=== PATIENT | male | born 1940 | race Caucasian/White ===

== ENCOUNTER 2017-08-04 16:24 | Observation (INO) | payer MEDICARE, BC ==
[2017-08-04] MEDS ORDERED: Sodium Chloride 0.9% 10 ML Syringe FLUSH PRN (16:34)
[2017-08-04] MEDS ORDERED: methylPREDNISolone Sodium Succinate 125 MG/2 ML SDV IV ONE (16:37)
[2017-08-04] MEDS ORDERED: Sodium Chloride 0.9% 1,000 ML IV ONE (16:37)
[2017-08-04] MEDS ORDERED: Albuterol/Ipratropium 3.0-0.5 MG/3 ML Neb Soln NEB ONE (16:37)
[2017-08-04] MEDS ORDERED: Amitriptyline 10 MG Tab PO SCH (20:00)
[2017-08-04] MEDS ORDERED: LORazepam 1 MG Tab PO SCH (20:00)
[2017-08-04] MEDS ORDERED: Oseltamivir 75 MG Cap PO SCH (20:00)
[2017-08-04] MEDS: Oseltamivir 30 MG Cap PO SCH (20:49)
--- NOTE | 2017-08-04 21:36 | EDM.PDOC ---
ED HPI GENERAL MEDICAL PROBLEM - General Chief Complaint: Respiratory Problem Stated Complaint: fever Time Seen by Provider: 08/04/17 16:35 Source of Information: Reports: Patient History Limitations: Reports: No Limitations - History of Present Illness INITIAL COMMENTS - FREE TEXT/NARRATIVE: Pt. complains of cough, chest congestion, and body aches for approx. 5 days. He has not been experiencing any rashes. No diarrhea. He has been nauseated. states that he has not been experiencing any confusion. No decreased LOC. He states that he is not experiencing any substernal chest pain or shortness of breath. 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 - Related Data Allergies Allergy/AdvReac Type Severity Reaction Status Date / Time niacin Allergy Body Aches Verified 08/04/17 18:44 simvastatin [From Zocor] Allergy Muscle Verified 08/04/17 18:44 Aches hmg-coa-r inhibitors Allergy Cannot Uncoded 08/04/17 18:44 Remember Home Meds: Home Meds Albuterol Sulfate [Albuterol Sulfate HFA] 1 - 2 puff IH ASDIRECTED PRN 10/11/14 [History] Aspirin [Pat Chewable Aspirin] 81 mg PO DAILY 10/11/14 [History] Budesonide/Formoterol [Symbicort 160-4.5 MCG] 2 puff INH BID 10/11/14 [History] Calcium Carbonate/Vitamin D3 [Caltrate 600 Plus D3 Tablet] 2 each PO DAILY 10/11 [History] Clopidogrel [Plavix] 75 mg PO DAILY 10/11/14 [History] Fish Oil/[place]-3 Fatty Acids [Fish Oil 1,000 MG] 1 each PO DAILY 10/11/14 [ History] LORazepam [Ativan] 1 mg PO BEDTIME 10/11/14 [History] Mesalamine [Lialda] 2 tab PO DAILY 10/11/14 [History] Metoprolol Tartrate [Lopressor] 25 mg PO BID 10/11/14 [History] Montelukast Sodium [Singulair] 10 mg PO DAILY 10/11/14 [History] Nitroglycerin [Nitro-Dur] 1 each TD DAILY 10/11/14 [History] Nitroglycerin [Nitrostat] 0.4 mg SL ASDIRECTED PRN 10/11/14 [History] Pramipexole Di-HCl [Mirapex] 0.5 mg PO DAILY 10/11/14 [History] Rosuvastatin [Crestor] 20 mg PO DAILY 10/11/14 [History] Albuterol [Proventil Neb Soln] 2.5 mg INH QID PRN 08/04/17 [History] Amitriptyline [Elavil] 10 mg PO BEDTIME 08/04/17 [History] Ascorbic Acid [Vitamin C] 1,000 mg PO DAILY 08/04/17 [History] Cholecalciferol (Vitamin D3) [Vitamin D3] 1,000 units PO DAILY 08/04/17 [History ] Clobetasol [Temovate 0.05% Oint] 1 applic TOP ASDIRECTED 08/04/17 [History] Cyanocobalamin (Vitamin B12) [Vitamin B12] 500 mcg PO ASDIRECTED 08/04/17 [ History] Cyanocobalamin/FA/Pyridoxine [B Complex-Folic Acid] 1 tab PO DAILY 08/04/17 [ History] Gabapentin [Neurontin] 300 mg PO TID 08/04/17 [History] Triamcinolone Acetonide [Triamcinolone Acetonide 0.1% Crm] 1 applic TOP BID PRN 08/04/17 [History] Ubidecarenone [Co Q-10] 75 mg PO DAILY 08/04/17 [History] Past Medical History HEENT History: Reports: Otitis Media, Sinusitis, Other (See Below) Other HEENT History: awaiting ear doctor appt.--tube came out and is effecting hearing, pt. has to keep an ear plug in or he hears his heartbeat while trying to sleep and it keeps him from sleeping. Cardiovascular History: Reports: Bypass, CAD, High Cholesterol, Pacemaker, Other (See Below) Other Cardiovascular History: cerebralvascular small vessel disease. AV block. carotid artery stenosis Respiratory History: Reports: Asthma, Sleep Apnea Gastrointestinal History: Reports: GERD, Other (See Below) Other Gastrointestinal History: benign neoplasm of colon. ulcerative colitis Genitourinary History: Reports: Renal Calculus Musculoskeletal History: Reports: Other (See Below) Other Musculoskeletal History: bilateral sacroiliac joints. closed pelvic fracture. R. 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 Psychiatric History: Reports: Anxiety, Other (See Below) Other Psychiatric History: restless legs Endocrine/Metabolic History: Reports: Obesity/BMI 30+ Social & Family History - Tobacco Use Smoking Status *Q: Former Smoker Years of Tobacco use: 40 Used Tobacco, but Quit: Yes Month Tobacco Last Used: Quit 35 years ago - Alcohol Use Days Per Week of Alcohol Use: 2 Number of Drinks Per Day: 2 Total Drinks Per Week: 4 - Recreational Drug Use Recreational Drug Use: No ED ROS GENERAL - Review of Systems Review Of Systems: See Below Constitutional: Reports: No Symptoms HEENT: Reports: No Symptoms Respiratory: Reports: Wheezing, Cough Cardiovascular: Reports: No Symptoms Endocrine: Reports: No Symptoms GI/Abdominal: Reports: No Symptoms : Reports: No Symptoms Musculoskeletal: Reports: No Symptoms Skin: Reports: No Symptoms Neurological: Reports: No Symptoms Psychiatric: Reports: No Symptoms Hematologic/Lymphatic: Reports: No Symptoms Immunologic: Reports: No Symptoms ED EXAM, GENERAL - Physical Exam Exam: See Below Exam Limited By: No Limitations General Appearance: Alert, WD/WN, No Apparent Distress Eye Exam: Bilateral Eye: EOMI, Foreign Body, PERRL Ears: Normal External Exam, Normal Canal, Hearing Grossly Normal, Normal TMs Ear Exam: Bilateral Ear: Auricle Normal, Canal Normal, TM normal Nose: Normal Inspection, Normal Mucosa, No Blood Throat/Mouth: Normal Inspection, Normal Lips, Normal Teeth, Normal Gums, Normal Oropharynx, Normal Voice, No Airway Compromise Head: Atraumatic, Normocephalic Neck: Normal Inspection, Supple, Non-Tender, Full Range of Motion Respiratory/Chest: No Respiratory Distress, Crackles, Wheezing Cardiovascular: Normal Peripheral Pulses, Regular Rate, Rhythm, No Edema, No Gallop, No JVD, No Murmur, No Rub Peripheral Pulses: 4+: Radial (L), Radial (R) GI/Abdominal: Normal Bowel Sounds, Soft, Non-Tender, No Organomegaly, No Distention, No Abnormal Bruit, No Mass Back Exam: Normal Inspection, Full Range of Motion, NT Extremities: Normal Inspection, Normal Range of Motion, Non-Tender, Normal Capillary Refill, No Pedal Edema Neurological: Alert, Oriented, CN II-XII Intact, Normal Cognition, Normal Gait, Normal Reflexes, No Motor/Sensory Deficits Psychiatric: Normal Affect, Normal Mood Skin Exam: Warm, Dry, Intact, Normal Color, No Rash Course - Vital Signs Last Recorded V/S: Last Vital Signs Temp 37.3 C 08/04/17 18:29 Pulse 70 08/04/17 18:29 Resp 22 H 08/04/17 18:29 BP 110/55 L 08/04/17 18:29 Pulse Ox 94 L 08/04/17 18:29 - Orders/Labs/Meds Orders: Active Orders 24 hr Category Date Time Status EKG Documentation Completion [RC] STAT Care 08/04/17 16:35 Ordered RT Aerosol Therapy [RC] ASDIRECTED Care 08/04/17 16:37 Active Chest 2V [CR] Stat Exams 08/04/17 16:34 Taken CULTURE BLOOD [BC] Stat Lab 08/04/17 16:50 Received CULTURE BLOOD [BC] Stat Lab 08/04/17 16:56 Received Sodium Chloride 0.9% [Saline Flush] Med 08/04/17 16:34 Active 10 ml FLUSH ASDIRECTED PRN Blood Culture x2 Reflex Set [OM.PC] Stat Oth 08/04/17 16:36 Ordered Peripheral IV Insertion Adult [OM.PC] Routine Oth 08/04/17 16:35 Ordered Medication Orders Albuterol/Ipratropium (Duoneb 3.0-0.5 Mg/3 Ml) 3 ml NEB Q6HRRT [facility] Amitriptyline HCl (Elavil) 10 mg PO BEDTIME [facility] Aspirin (Aspirin) 81 mg PO DAILY [facility] Cholecalciferol (Vitamin D3) 1,000 units PO DAILY [facility] Clopidogrel Bisulfate (Plavix) 75 mg PO DAILY [facility] Fish Oil (Fish Oil) gm PO DAILY [facility] Gabapentin (Neurontin) 300 mg PO TID [facility] Lorazepam (Ativan) 1 mg PO BEDTIME [facility] Metoprolol Tartrate (Lopressor) 25 mg PO BID [facility] Montelukast Sodium (Singulair) 10 mg PO DAILY [facility] Non-Formulary Medication (Budesonide/Formoterol) 2 puff INH BID [facility] Non-Formulary Medication (Calcium Carbonate/Vitamin D3 [Caltrate 600 Plus D3 Tablet]) 2 each PO DAILY [facility] Cyanocobalamin [ (Vitamin B12] 500mcg) 500 mcg PO Q48H [facility] Non-Formulary Medication (Cyanocobalamin/Fa/Pyridoxine [B Complex-Folic Acid]) 1 tab PO DAILY [facility] Non-Formulary Medication (Rosuvastatin [Crestor]) 20 mg PO DAILY [facility] Oseltamivir Phosphate (Tamiflu) 30 mg PO BID [facility] Last Admin: 08/04/17 20:49 Dose: 30 mg Pramipexole Dihydrochloride (Mirapex) 0.5 mg PO DAILY [facility] Sodium Chloride (Saline Flush) 10 ml FLUSH ASDIRECTED PRN PRN Reason: Keep Vein Open Last Admin: 08/04/17 16:58 Dose: 10 ml Labs: Laboratory Tests 08/04/17 08/04/17 08/04/17 Range/Units 16:50 16:50 16:50 WBC 7.6 (4.0-10.0) x10^3/uL RBC 3.75 L (4.5-6.0) x10^6/uL Hgb 12.1 L D (14.0-18.0) g/dL Hct 35.5 L (40.0-52.0) % MCV 94.7 H (78.0-93.0) fL MCH 32.3 H (26.0-32.0) pg MCHC 34.1 (32.0-36.0) g/dL RDW Coeff of Xochilt 13.2 (10.0-15.0) % Plt Count 151 (130-400) x10^3/uL Neut % (Auto) 61.1 (50.0-80.0) % Lymph % (Auto) 21.4 L (25.0-50.0) % [place] % (Auto) 15.1 H (2.0-11.0) % Eos % (Auto) 2.0 (0.0-4.0) % Baso % (Auto) 0.4 (0.2-1.2) % PT 10.3 (9.8-11.8) SEC INR 1.0 L (2.0-3.5) Sodium 141 (136-145) mmol/L Potassium 3.8 (3.5-5.1) mmol/L Chloride 105 (98-107) mmol/L Carbon Dioxide 23 (21-32) mmol/L BUN 17 (7-18) mg/dL Creatinine 1.5 H (0.70-1.30) mg/dL Est Cr Clr Drug Dosing 37.33 mL/min Estimated GFR (MDRD) 45 Glucose 119 H (74-106) mg/dL Lactic Acid (0.4-2.0) mmol/L Calcium 8.2 L (8.5-10.1) mg/dL Corrected Calcium 8.68 (8.5-10.1) mg/dL Total Bilirubin 0.5 (0.2-1.0) mg/dL AST 19 (15-37) U/L ALT 22 (16-63) U/L Alkaline Phosphatase 68 (46-116) U/L Troponin I 0.029 (<=0.056) ng/mL C-Reactive Protein 3.7 H (<=0.9) mg/dL NT-Pro-B Natriuret Pep 1533 H (<=450) pg/mL Total Protein 7.1 (6.4-8.2) g/dL Albumin 3.4 (3.4-5.0) g/dL Globulin 3.7 Albumin/Globulin Ratio 0.92 //18 Range/Units 16:50 WBC (4.0-10.0) x10^3/uL RBC (4.5-6.0) x10^6/uL Hgb (14.0-18.0) g/dL Hct (40.0-52.0) % MCV (78.0-93.0) fL MCH (26.0-32.0) pg MCHC (32.0-36.0) g/dL RDW Coeff of Xochilt (10.0-15.0) % Plt Count (130-400) x10^3/uL Neut % (Auto) (50.0-80.0) % Lymph % (Auto) (25.0-50.0) % [place] % (Auto) (2.0-11.0) % Eos % (Auto) (0.0-4.0) % Baso % (Auto) (0.2-1.2) % PT (9.8-11.8) SEC INR (2.0-3.5) Sodium (136-145) mmol/L Potassium (3.5-5.1) mmol/L Chloride (98-107) mmol/L Carbon Dioxide (21-32) mmol/L BUN (7-18) mg/dL Creatinine (0.70-1.30) mg/dL Est Cr Clr Drug Dosing mL/min Estimated GFR (MDRD) Glucose (74-106) mg/dL Lactic Acid 1.0 (0.4-2.0) mmol/L Calcium (8.5-10.1) mg/dL Corrected Calcium (8.5-10.1) mg/dL Total Bilirubin (0.2-1.0) mg/dL AST (15-37) U/L ALT (16-63) U/L Alkaline Phosphatase (46-116) U/L Troponin I (<=0.056) ng/mL C-Reactive Protein (<=0.9) mg/dL NT-Pro-B Natriuret Pep (<=450) pg/mL Total Protein (6.4-8.2) g/dL Albumin (3.4-5.0) g/dL Globulin Albumin/Globulin Ratio Meds: Medications Generic Name Dose Route Start Last Admin Trade Name Freq PRN Reason Stop Dose Admin Albuterol/Ipratropium 3 ml 08/05/17 01:00 Duoneb 3.0-0.5 Mg/3 Ml NEB Q6HRRT [facility] Amitriptyline HCl 10 mg 08/05/17 20:00 Elavil PO BEDTIME [facility] Aspirin 81 mg 08/05/17 08:00 Aspirin PO DAILY [facility] Cholecalciferol 1,000 units 08/05/17 08:00 Vitamin D3 PO DAILY [facility] Clopidogrel Bisulfate 75 mg 08/05/17 08:00 Plavix PO DAILY [facility] Fish Oil gm 08/05/17 08:00 Fish Oil PO DAILY [facility] Gabapentin 300 mg 08/05/17 08:00 Neurontin PO TID [facility] Lorazepam 1 mg 08/05/17 20:00 Ativan PO BEDTIME [facility] Metoprolol Tartrate 25 mg 08/05/17 08:00 Lopressor PO BID [facility] Montelukast Sodium 10 mg 08/05/17 08:00 Singulair PO DAILY [facility] Non-Formulary Medication 2 puff 08/05/17 08:00 Budesonide/Formoterol INH BID [facility] Non-Formulary Medication 2 each 08/05/17 08:00 Calcium Carbonate/Vitamin D3 [Caltrate 600 Plus D3 Tablet] PO DAILY [facility] Cyanocobalamin [ 500 mcg 08/05/17 09:00 Vitamin B12] 500mcg PO Q48H [facility] Non-Formulary Medication 1 tab 08/05/17 08:00 Cyanocobalamin/Fa/Pyridoxine [B Complex-Folic Acid] PO DAILY [facility] Non-Formulary Medication 20 mg 08/05/17 08:00 Rosuvastatin [Crestor] PO DAILY [facility] Oseltamivir Phosphate 30 mg 08/04/17 20:00 08/04/17 20:49 Tamiflu PO 30 mg BID [facility] Administration Pramipexole Dihydrochloride 0.5 mg 08/05/17 08:00 Mirapex PO DAILY [facility] Sodium Chloride 10 ml 08/04/17 16:34 08/04/17 16:58 Saline Flush FLUSH 10 ml ASDIRECTED PRN Administration Keep Vein Open Discontinued Medications Generic Name Dose Route Start Last Admin Trade Name Freq PRN Reason Stop Dose Admin Albuterol/Ipratropium 3 ml 08/04/17 16:37 08/04/17 16:42 Duoneb 3.0-0.5 Mg/3 Ml NEB 08/04/17 16:38 3 ml ONETIME ONE Administration Sodium Chloride 1,000 mls @ 1,000 mls/hr 08/04/17 16:37 08/04/17 17:13 Normal Saline IV 08/04/17 17:36 1,000 mls/hr .BOLUS ONE Administration Methylprednisolone Sodium Succinate 125 mg 08/04/17 16:37 08/04/17 16:57 Solu-Medrol IV 08/04/17 16:38 125 mg ONETIME ONE Administration Oseltamivir Phosphate 75 mg 08/04/17 20:00 Tamiflu PO BID [facility] Departure - Departure Time of Disposition: 18:32 Disposition: Admitted As Inpatient 64 Clinical Impression: Influenza A - Discharge Information - My Orders Last 24 Hours: My Active Orders 08/04/17 16:34 Chest 2V [CR] Stat Sodium Chloride 0.9% [Saline Flush] 10 ml FLUSH ASDIRECTED PRN 08/04/17 16:35 EKG Documentation Completion [RC] STAT Peripheral IV Insertion Adult [OM.PC] Routine 08/04/17 16:36 Blood Culture x2 Reflex Set [OM.PC] Stat 08/04/17 16:37 RT Aerosol Therapy [RC] ASDIRECTED 08/04/17 16:50 CULTURE BLOOD [BC] Stat 08/04/17 16:56 CULTURE BLOOD [BC] Stat - Assessment/Plan Last 24 Hours: My Active Orders 08/04/17 16:34 Chest 2V [CR] Stat Sodium Chloride 0.9% [Saline Flush] 10 ml FLUSH ASDIRECTED PRN 08/04/17 16:35 EKG Documentation Completion [RC] STAT Peripheral IV Insertion Adult [OM.PC] Routine 08/04/17 16:36 Blood Culture x2 Reflex Set [OM.PC] Stat 08/04/17 16:37 RT Aerosol Therapy [RC] ASDIRECTED 08/04/17 16:50 CULTURE BLOOD [BC] Stat 08/04/17 16:56 CULTURE BLOOD [BC] Stat
[2017-08-04] MEDS ORDERED: LORAZEPAM 2 MG PO SCH (21:57)
[2017-08-04] MEDS: METOPROLOL TARTRATE 100 MG PO SCH (22:32)
[2017-08-04] MEDS: GABAPENTIN 600 MG PO SCH (22:35)
[2017-08-04] MEDS: Formoterol/Mometasone 200-5 MCG 8.8 GM Inhaler IH SCH (22:43)
[2017-08-05] MEDS: Albuterol/Ipratropium 3.0-0.5 MG/3 ML Neb Soln NEB SCH ×2 (00:40→07:12)
[2017-08-05] MEDS ORDERED: Acetaminophen 325 MG Tab PO ONE (05:34)
[2017-08-05] MEDS ORDERED: [UNRECOGNIZED DRUG - OTHER] PO SCH (08:00)
[2017-08-05] MEDS ORDERED: Metoprolol Tartrate 50 MG Tab PO SCH (08:00)
[2017-08-05] MEDS ORDERED: Calcium Carbonate/Vitamin D3 1250 MG-200 Unit Tab PO SCH (08:00)
[2017-08-05] MEDS ORDERED: PYRIDOXINE PO SCH (08:00)
[2017-08-05] MEDS ORDERED: CYANOCOBALAMIN PO SCH (08:00)
[2017-08-05] MEDS ORDERED: PRAMIPEXOLE 1 MG PO SCH (08:00)
[2017-08-05] MEDS ORDERED: CLOPIDOGREL 75 MG PO SCH (08:00)
[2017-08-05] MEDS ORDERED: Aspirin 81 MG Tab.Chew PO SCH (08:00)
[2017-08-05] MEDS ORDERED: Fish Oil/Omega-3 Fatty Acids 1 Gm Cap PO SCH (08:00)
[2017-08-05] MEDS ORDERED: Cholecalciferol (Vitamin D3) 1,000 Unit Tab PO SCH (08:00)
[2017-08-05] MEDS ORDERED: ROSUVASTATIN 40 MG PO SCH (08:00)
[2017-08-05] MEDS ORDERED: Montelukast 10 MG Tab PO SCH (08:00)
[2017-08-05] MEDS ORDERED: Cyanocobalamin (Vitamin B12) 250 MCG Tab PO SCH (09:00)
[2017-08-05 09:23] VITALS: BP 152/70
[2017-08-05] MEDS: Formoterol/Mometasone 200-5 MCG 8.8 GM Inhaler IH SCH (09:33)
[2017-08-05] MEDS: GABAPENTIN 600 MG PO SCH ×2 (09:34→12:37)
[2017-08-05] MEDS: METOPROLOL TARTRATE 100 MG PO SCH (09:36)
[2017-08-05] MEDS: Oseltamivir 30 MG Cap PO SCH (09:49)
[2017-08-05] MEDS ORDERED: Oseltamivir 30 MG Cap ONE (12:00)
--- NOTE | 2017-08-14 09:37 | PCM.DCSUM1 ---
Discharge Summary - Discharge Data Discharge Date: 08/05/17 Discharge Disposition: Home, Self-Care 01 Condition: Good - Discharge Diagnosis/Problem(s) (1) Influenza A SNOMED Code(s): 037103595 ICD Code: J10.1 - FLU DUE TO OTH IDENT INFLUENZA VIRUS W OTH RESP MANIFEST Status: Acute Priority: Medium Onset Date: ~08/03/17 - Patient Summary/Data Hospital Course: Seen in ER and then sent to observation. Received breathing treatments and IV fluids. Appetite improved. Breathing better. He will follow-up with his primary. No fluttering of the chest. - Patient Instructions Diet: Usual Diet as Tolerated Activity: As Tolerated Driving: May Drive Today - Discharge Plan Prescriptions/Med Rec: Oseltamivir [Tamiflu] 30 mg PO BID #9 cap Home Medications: Home Meds Albuterol Sulfate [Albuterol Sulfate HFA] 1 - 2 puff IH ASDIRECTED PRN 10/11/14 [History] Aspirin [Pat Chewable Aspirin] 81 mg PO DAILY 10/11/14 [History] Budesonide/Formoterol [Symbicort 160-4.5 MCG] 2 puff INH BID 10/11/14 [History] Calcium Carbonate/Vitamin D3 [Caltrate 600 Plus D3 Tablet] 2 each PO DAILY 10/11 [History] Clopidogrel [Plavix] 75 mg PO DAILY 10/11/14 [History] Fish Oil/[place]-3 Fatty Acids [Fish Oil 1,000 MG] 1 each PO DAILY 10/11/14 [ History] LORazepam [Ativan] 1 mg PO BEDTIME 10/11/14 [History] Mesalamine [Lialda] 2 tab PO DAILY 10/11/14 [History] Metoprolol Tartrate [Lopressor] 50 mg PO BID 10/11/14 [History] Montelukast Sodium [Singulair] 10 mg PO DAILY 10/11/14 [History] Nitroglycerin [Nitro-Dur] 1 each TD DAILY 10/11/14 [History] Nitroglycerin [Nitrostat] 0.4 mg SL ASDIRECTED PRN 10/11/14 [History] Pramipexole Di-HCl [Mirapex] 0.5 mg PO DAILY 10/11/14 [History] Rosuvastatin [Crestor] 20 mg PO DAILY 10/11/14 [History] Albuterol [Proventil Neb Soln] 2.5 mg INH QID PRN 08/04/17 [History] Amitriptyline [Elavil] 10 mg PO BEDTIME 08/04/17 [History] Ascorbic Acid [Vitamin C] 1,000 mg PO DAILY 08/04/17 [History] Cholecalciferol (Vitamin D3) [Vitamin D3] 1,000 units PO DAILY 08/04/17 [History ] Clobetasol [Temovate 0.05% Oint] 1 applic TOP ASDIRECTED 08/04/17 [History] Cyanocobalamin (Vitamin B12) [Vitamin B12] 500 mcg PO ASDIRECTED 08/04/17 [ History] Cyanocobalamin/FA/Pyridoxine [B Complex-Folic Acid] 1 tab PO DAILY 08/04/17 [ History] Gabapentin [Neurontin] 300 mg PO TID 08/04/17 [History] Triamcinolone Acetonide [Triamcinolone Acetonide 0.1% Crm] 1 applic TOP BID PRN 08/04/17 [History] Ubidecarenone [Co Q-10] 75 mg PO DAILY 08/04/17 [History] Calcium Carbonate/Vitamin D3 [Calcium Carbonate/Vitamin D 1250 MG-200 Unit] 2 tab PO DAILY tablet 08/05/17 [Rx] Oseltamivir [Tamiflu] 30 mg PO BID #9 cap 08/05/17 [Rx] Patient Handouts: Influenza, Adult, [id number] Forms: ED Department Discharge Referrals: Keyana Bradford DO [Primary Care Provider] - - General Info Date of Service: 08/05/17 Functional Status: Reports: Ambulating - Review of Systems General: Reports: No Symptoms HEENT: Reports: No Symptoms Pulmonary: Denies: Shortness of Breath (Much improved. ), Pleuritic Chest Pain, Cough Cardiovascular: Reports: No Symptoms. Denies: Palpitations Gastrointestinal: Reports: No Symptoms Psychiatric: Reports: No Symptoms - Patient Data Vitals - Most Recent: Last Vital Signs Temp 36.8 C 08/05/17 09:19 Pulse 78 08/05/17 09:19 Resp 18 08/05/17 09:19 BP 152/70 H 08/05/17 09:19 Pulse Ox 98 08/05/17 09:19 Weight - Most Recent: 92.533 kg Med Orders - Current: Current Medications Discontinued Medications Acetaminophen (Tylenol) 650 mg PO NOW ONE Stop: 08/05/17 05:35 Last Admin: 08/05/17 05:40 Dose: 650 mg Albuterol/Ipratropium (Duoneb 3.0-0.5 Mg/3 Ml) 3 ml NEB ONETIME ONE Stop: 08/04/17 16:38 Last Admin: 08/04/17 16:42 Dose: 3 ml Albuterol/Ipratropium (Duoneb 3.0-0.5 Mg/3 Ml) 3 ml NEB Q6HRRT [facility] Last Admin: 08/05/17 07:12 Dose: 3 ml Amitriptyline HCl (Elavil) 10 mg PO BEDTIME [facility] Last Admin: 08/04/17 22:42 Dose: 10 mg Aspirin (Aspirin) 81 mg PO DAILY [facility] Last Admin: 08/05/17 09:48 Dose: 81 mg Calcium Carbonate (Calcium Carbonate/Vitamin D 1250 Mg-200 Unit) 2 tab PO DAILY [facility] Last Admin: 08/05/17 09:48 Dose: 2 tab Cholecalciferol (Vitamin D3) 1,000 units PO DAILY [facility] Last Admin: 08/05/17 09:48 Dose: 1,000 units Clopidogrel Bisulfate (Plavix) 75 mg PO DAILY [facility] Last Admin: 08/05/17 09:39 Dose: 75 mg Cyanocobalamin (Vitamin B12) 500 mcg PO Q48H [facility] Last Admin: 08/05/17 09:50 Dose: Not Given Fish Oil (Fish Oil) 1 gm PO DAILY [facility] Last Admin: 08/05/17 09:49 Dose: 1 gm Sodium Chloride (Normal Saline) 1,000 mls @ 1,000 mls/hr IV .BOLUS ONE Stop: 08/04/17 17:36 Last Admin: 08/04/17 17:13 Dose: 1,000 mls/hr Lorazepam (Ativan) 1 mg PO BEDTIME [facility] Last Admin: 08/04/17 22:44 Dose: Not Given Methylprednisolone Sodium Succinate (Solu-Medrol) 125 mg IV ONETIME ONE Stop: 08/04/17 16:38 Last Admin: 08/04/17 16:57 Dose: 125 mg Metoprolol Tartrate (Lopressor) 25 mg PO BID [facility] Mometasone Furoate/Formoterol Fumar (Dulera 200-5 Mcg) 2 puff IH BID [facility] Last Admin: 08/05/17 09:33 Dose: 2 puff Montelukast Sodium (Singulair) 10 mg PO DAILY [facility] Last Admin: 08/05/17 09:49 Dose: 10 mg Cyanocobalamin/Fa/Pyridoxine [B Complex-Folic Acid] 1 Tab 1 tab PO DAILY [facility] Gabapentin 600mg (Tablet Own Med ) 0 each PO TID [facility] Last Admin: 08/05/17 12:37 Dose: Not Given Pramipexole 1mg (Tablet Own Med ) 0 each PO DAILY [facility] Last Admin: 08/05/17 09:39 Dose: 1 each Rosuvastatin [ Crestor] 40mg Tablet Own Med 20 mg PO DAILY [facility] Last Admin: 08/05/17 09:40 Dose: 20 mg Lorazepam 2mg Tablet ( Own Med ) 0 each PO BEDTIME [facility] Last Admin: 08/04/17 22:34 Dose: 1 each Metoprolol Tartrate 100mg Tablet Own Med 0 each PO BID [facility] Last Admin: 08/05/17 09:36 Dose: 1 each Oseltamivir Phosphate (Tamiflu) 75 mg PO BID [facility] Oseltamivir Phosphate (Tamiflu) 30 mg PO BID [facility] Last Admin: 08/05/17 09:49 Dose: 30 mg Oseltamivir Phosphate (Tamiflu) 90 mg .ROUTE .STK-MED ONE Stop: 08/05/17 12:01 Sodium Chloride (Saline Flush) 10 ml FLUSH ASDIRECTED PRN PRN Reason: Keep Vein Open Last Admin: 08/04/17 16:58 Dose: 10 ml - Exam Quality Assessment: Denies: Supplemental Oxygen General: Reports: Alert, Oriented HEENT: Reports: Pupils Equal Neck: Denies: Lymphadenopathy Cardiovascular: Reports: Regular Rate, Regular Rhythm GI/Abdominal Exam: Normal Bowel Sounds Psy/Mental Status: Reports: Alert, Normal Affect *Q Meaningful Use (DIS) - VTE *Q VTE Criteria *Q: - Stroke *Q Stroke Criteria *Q: - AMI *Q AMI Criteria *Q:
== END 2017-08-05 12:20 | disposition home or self-care (01) ==
LOC: VM.ED 16:24 → VM.MS 18:17
PROVIDERS: ADMIT Physician Assistant; ATTEND Physician Assistant
DX: J10.1 Influenza due to other identified influenza virus with other respiratory manifestations (principal); Z79.82 Long term (current) use of aspirin; Z79.899 Other long term (current) drug therapy; Z88.8 Allergy status to other drugs, medicaments and biological substances; J45.909 Unspecified asthma, uncomplicated; G47.30 Sleep apnea, unspecified; K21.9 Gastro-esophageal reflux disease without esophagitis; I25.10 Atherosclerotic heart disease of native coronary artery without angina pectoris; E78.00 Pure hypercholesterolemia, unspecified; F41.9 Anxiety disorder, unspecified; E66.9 Obesity, unspecified; Z68.30 Body mass index [BMI] 30.0-30.9, adult; Z87.891 Personal history of nicotine dependence
CPT/HCPCS: 36415; 71046; 80053; 83605; 83880; 84484; 85025; 85610; 86140; 87040; 87804; 93005; 94640; 94760; 96361; 96374; 99285; A9270; G0378; J2930; J7030; J7050; 99217; 99220

== ENCOUNTER 2019-05-08 19:48 | Emergency (ER) | payer MEDICARE, BC ==
[2019-05-08 20:05] VITALS: BP 122/44; PULSE 83
--- NOTE | 2019-05-08 20:39 | EDM.PDOC ---
ED HPI GENERAL MEDICAL PROBLEM - General Chief Complaint: General Stated Complaint: FEVER,WEAK Time Seen by Provider: 05/08/19 20:26 - History of Present Illness INITIAL COMMENTS - FREE TEXT/NARRATIVE: Govind is an 79 y/o male who presents to the ER with his for complaints of possible constipation. He had a Urology procedure on Sunday in [place] and was sent home that day. He had done a fleets enema on Sunday night and he has not really had a BM since and he is very concerned about this. He has taken a couple Hydrocodone/APAP but relaly just taken Motrin for pain. He also had a fever of 100.7 at home tonight about 6pm and his gave him Motrin prior to coming to the ER. He was started on Cipro after the procedure and has been taking it. He is concerned about the fever since he was post op. He admits that he is mostly worried about "how hard I can push to have a BM." He did not make contact with his Urologist today in the office and does not have any follow up appt scheduled. - Related Data Allergies Allergy/AdvReac Type Severity Reaction Status Date / Time niacin AdvReac Body Aches Verified 08/06/17 08:40 simvastatin [From Zocor] AdvReac Muscle Verified 08/06/17 08:40 Aches Home Meds: Home Meds Albuterol Sulfate [Albuterol Sulfate HFA] 1 - 2 puff IH ASDIRECTED PRN 10/11/14 [History] Aspirin [Pat Chewable Aspirin] 81 mg PO DAILY 10/11/14 [History] Budesonide/Formoterol [Symbicort 160-4.5 MCG] 2 puff INH BID 10/11/14 [History] Calcium Carbonate/Vitamin D3 [Caltrate 600 Plus D3 Tablet] 2 each PO DAILY 10/11 [History] Clopidogrel [Plavix] 75 mg PO DAILY 10/11/14 [History] Fish Oil/[place]-3 Fatty Acids [Fish Oil 1,000 MG] 1 each PO DAILY 10/11/14 [ History] LORazepam [Ativan] 1 mg PO BEDTIME 10/11/14 [History] Mesalamine [Lialda] 2 tab PO DAILY 10/11/14 [History] Metoprolol Tartrate [Lopressor] 50 mg PO BID 10/11/14 [History] Montelukast Sodium [Singulair] 10 mg PO DAILY 10/11/14 [History] Nitroglycerin [Nitro-Dur] 1 each TD DAILY 10/11/14 [History] Nitroglycerin [Nitrostat] 0.4 mg SL ASDIRECTED PRN 10/11/14 [History] Pramipexole Di-HCl [Mirapex] 0.5 mg PO DAILY 10/11/14 [History] Rosuvastatin [Crestor] 20 mg PO DAILY 10/11/14 [History] Albuterol [Proventil Neb Soln] 2.5 mg INH QID PRN 08/04/17 [History] Amitriptyline [Elavil] 10 mg PO BEDTIME 08/04/17 [History] Ascorbic Acid [Vitamin C] 1,000 mg PO DAILY 08/04/17 [History] Cholecalciferol (Vitamin D3) [Vitamin D3] 1,000 units PO DAILY 08/04/17 [History ] Clobetasol [Temovate 0.05% Oint] 1 applic TOP ASDIRECTED 08/04/17 [History] Cyanocobalamin (Vitamin B12) [Vitamin B12] 500 mcg PO ASDIRECTED 08/04/17 [ History] Cyanocobalamin/FA/Pyridoxine [B Complex-Folic Acid] 1 tab PO DAILY 08/04/17 [ History] Gabapentin [Neurontin] 300 mg PO TID 08/04/17 [History] Triamcinolone Acetonide [Triamcinolone Acetonide 0.1% Crm] 1 applic TOP BID PRN 08/04/17 [History] Ubidecarenone [Co Q-10] 75 mg PO DAILY 08/04/17 [History] Calcium Carbonate/Vitamin D3 [Calcium Carbonate/Vitamin D 1250 MG-200 Unit] 2 tab PO DAILY tablet 08/05/17 [Rx] Past Medical History HEENT History: Reports: Otitis Media, Sinusitis, Other (See Below) Other HEENT History: awaiting ear doctor appt.--tube came out and is effecting hearing, pt. has to keep an ear plug in or he hears his heartbeat while trying to sleep and it keeps him from sleeping. Cardiovascular History: Reports: Bypass, CAD, High Cholesterol, Pacemaker, Other (See Below) Other Cardiovascular History: cerebralvascular small vessel disease. AV block. carotid artery stenosis Respiratory History: Reports: Asthma, Sleep Apnea Gastrointestinal History: Reports: GERD, Other (See Below) Other Gastrointestinal History: benign neoplasm of colon. ulcerative colitis Genitourinary History: Reports: Prostate Disorder, Renal Calculus Musculoskeletal History: Reports: Other (See Below) Other Musculoskeletal History: bilateral sacroiliac joints. closed pelvic fracture. R. 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 Psychiatric History: Reports: Anxiety, Other (See Below) Other Psychiatric History: restless legs Endocrine/Metabolic History: Reports: Obesity/BMI 30+ ED ROS GENERAL - Review of Systems Review Of Systems: See Below Constitutional: Reports: Fever HEENT: Reports: No Symptoms Respiratory: Reports: No Symptoms Cardiovascular: Reports: No Symptoms Endocrine: Reports: No Symptoms GI/Abdominal: Reports: Constipation : Reports: Urgency Musculoskeletal: Reports: No Symptoms Skin: Reports: No Symptoms Neurological: Reports: No Symptoms Psychiatric: Reports: No Symptoms Hematologic/Lymphatic: Reports: No Symptoms Immunologic: Reports: No Symptoms ED EXAM, GENERAL - Physical Exam Exam: See Below Exam Limited By: No Limitations General Appearance: Alert, WD/WN, No Apparent Distress (Elderly male, NAD) Ears: Normal External Exam, Normal Canal, Hearing Grossly Normal Nose: Normal Inspection, Normal Mucosa Throat/Mouth: Normal Inspection, Normal Lips, Normal Teeth, Normal Voice Head: Atraumatic, Normocephalic Neck: Supple Respiratory/Chest: No Respiratory Distress, Lungs Clear, Normal Breath Sounds, No Accessory Muscle Use, Chest Non-Tender Cardiovascular: Normal Peripheral Pulses, Regular Rate, Rhythm, No Edema, No Gallop, Diastolic Murmur GI/Abdominal: Normal Bowel Sounds, Soft, No Organomegaly, No Distention, No Mass , Tender (slightly in the LUQ) (Male) Exam: Deferred Rectal (Males) Exam: Deferred Back Exam: Normal Inspection Extremities: Normal Inspection, Normal Range of Motion, No Pedal Edema, Normal Capillary Refill Neurological: Alert, Oriented, CN II-XII Intact, Normal Cognition, Normal Gait Psychiatric: Normal Affect, Normal Mood Skin Exam: Warm, Dry, Intact, Normal Color, No Rash Lymphatic: No Adenopathy Course - Vital Signs Text/Narrative:: The patient was seen by the CREW CALLER. Labs and Xray were ordered. 2114 Xray reviewed. No intervention needed for constipation. Will reinforce use of Senna as per post op instructions. 2144 Reviewed xray report and labs with patient and his . No intervention done here in [facility] ER. Reinforced using stool softners/Miralax. Continue Cipro and monitor fever. Reassurance given and questions answered. Discharge instructions were given and the patient was sent home in stable condition. Last Recorded V/S: Last Vital Signs Temp 37.1 C 05/08/19 20:00 Pulse 83 05/08/19 20:00 Resp 20 05/08/19 20:00 BP 122/44 L 05/08/19 20:00 Pulse Ox 97 05/08/19 20:00 - Orders/Labs/Meds Orders: Active Orders 24 hr Category Date Time Status Abdomen 2V AP Flat Upright [CR] Stat Exams 05/08/19 20:39 Taken Labs: Laboratory Tests 05/08/19 05/08/19 Range/Units 21:04 21:04 WBC 2.8 L (4.0-10.0) x10^3/uL RBC 2.33 L (4.5-6.0) x10^6/uL Hgb 8.1 L D (14.0-18.0) g/dL Hct 23.5 L (40.0-52.0) % MCV 100.9 H D (78.0-93.0) fL MCH 34.8 H (26.0-32.0) pg MCHC 34.5 (32.0-36.0) g/dL RDW Coeff of Xochilt 15.4 H (10.0-15.0) % Plt Count 59 L D (130-400) x10^3/uL Neut % (Auto) 16.6 L (50.0-80.0) % Lymph % (Auto) 50.7 H (25.0-50.0) % [place] % (Auto) 27.7 H (2.0-11.0) % Eos % (Auto) 4.6 H (0.0-4.0) % Baso % (Auto) 0.4 (0.2-1.2) % Sodium 139 (69-191) mmol/L Potassium 3.7 (1.5-9.9) mmol/L Chloride 103 (54-184) mmol/L Carbon Dioxide 23 (21-32) mmol/L Anion Gap 16.7 (10-20) mmol/L BUN 19 H (7-18) mg/dL Creatinine 1.3 (0.70-1.30) mg/dL Est Cr Clr Drug Dosing TNP Estimated GFR (MDRD) 53 Glucose 94 (74-106) mg/dL Calcium 8.1 L (8.5-10.1) mg/dL Corrected Calcium 8.66 (8.5-10.1) mg/dL Total Bilirubin 0.5 (0.2-1.0) mg/dL AST 12 L (15-37) U/L ALT 17 (16-63) U/L Alkaline Phosphatase 72 (46-116) U/L Total Protein 6.7 (6.4-8.2) g/dL Albumin 3.3 L (3.4-5.0) g/dL Globulin 3.4 Albumin/Globulin Ratio 0.97 - Radiology Interpretation Free Text/Narrative:: XR Abdomen 2V=minimal gas and stool noted in ascending colon (final report pending) Departure - Departure Time of Disposition: 21:50 Disposition: Home, Self-Care 01 Preliminary Cause of *Q: Cardiac Arrest Condition: Good Clinical Impression: Prostate cancer, Fever, History of recent chemotherapy - Discharge Information *PRESCRIPTION DRUG MONITORING PROGRAM REVIEWED*: Not Applicable *COPY OF PRESCRIPTION DRUG MONITORING REPORT IN PATIENT SERVANDO: Not Applicable Instructions: Chemotherapy, Prostate Cancer Referrals: Keyana Bradford, DO [Primary Care Provider] - Forms: ED Department Discharge Additional Instructions: -Continue medications as prescribed by the Urologist following surgical procedure -Use Senna and Miralax until you can easily have a bowel movement. Avoid excessive straining. -Keep your chemo appt for next Sunday -Monitor fever. Push fluids. -Monitor for further symptoms -Rest -Return to the ER or call the clinic if your condition does not improve. - Problem List & Annotations (1) Fever SNOMED Code(s): 930620871 Code(s): R50.9 - FEVER, UNSPECIFIED Status: Acute Current Visit: Yes (2) History of recent chemotherapy SNOMED Code(s): 290107654 Code(s): UHA9766 - Status: Acute Current Visit: Yes (3) Prostate cancer SNOMED Code(s): 083989847 Code(s): C61 - MALIGNANT NEOPLASM OF PROSTATE Status: Acute Current Visit : Yes - My Orders Last 24 Hours: My Active Orders 05/08/19 20:39 Abdomen 2V AP Flat Upright [CR] Stat - Assessment/Plan Last 24 Hours: My Active Orders 05/08/19 20:39 Abdomen 2V AP Flat Upright [CR] Stat
[2019-05-08 21:26] LABS: CHLORIDE,CL 103 mmol/L (54-184); SODIUM,NA 139 mmol/L (69-191)
[2019-05-08 21:28] LABS: ANION GAP 16.7 mmol/L (10-20)
--- NOTE | 2019-05-09 07:39 | CR ---
[id number] RAD/RAD Abd Flat and Upright 2V Exam: RAD Abd Flat and Upright 2V Clinical Data: ABDOMINAL DISCOMFORT COMPARISON: NO PREVIOUS SIMILAR EXAM IS AVAILABLE FINDINGS: There is no bowel obstruction There is mild fecal volume There is no organomegaly or pathologic calcification IMPRESSION: NO APPRECIABLE OBSTIPATION Wyatt Cadet MD 05/09/19 0737 Thank you for allowing us to participate in the care of your patient.
== END 2019-05-08 22:13 | disposition home or self-care (01) ==
LOC: VM.ED 19:48
DX: C61 Malignant neoplasm of prostate (principal); R50.9 Fever, unspecified; I25.10 Atherosclerotic heart disease of native coronary artery without angina pectoris; E78.00 Pure hypercholesterolemia, unspecified; E66.9 Obesity, unspecified; J45.909 Unspecified asthma, uncomplicated; K51.90 Ulcerative colitis, unspecified, without complications; Z79.82 Long term (current) use of aspirin; Z79.899 Other long term (current) drug therapy; Z88.3 Allergy status to other anti-infective agents; Z88.8 Allergy status to other drugs, medicaments and biological substances; Z95.0 Presence of cardiac pacemaker; Z95.1 Presence of aortocoronary bypass graft; Z92.21 Personal history of antineoplastic chemotherapy
CPT/HCPCS: 36415; 74019; 80053; 85025; 99284-25

== ENCOUNTER 2020-04-22 03:34 | Emergency (ER) | payer MEDICARE, BC ==
[2020-04-22] MEDS: Sodium Chloride 0.9% 1,000 ML IV ONE (04:15)
--- NOTE | 2020-04-22 04:21 | EDM.PDOC ---
ED HPI GENERAL MEDICAL PROBLEM - General Chief Complaint: Genitourinary Problem Stated Complaint: Low abdominal pain, ? bladder infection, prostate Time Seen by Provider: 04/22/20 04:02 Source of Information: Reports: Patient - History of Present Illness INITIAL COMMENTS - FREE TEXT/NARRATIVE: Govind is an 80 y/o male who comes to the ER with his early this AM with abdominal discomfort. He reports starting to feel this way about 2-3 days ago, but it got worse tonight and he could not sleep. He is currently undergoing chemo for prostate cancer and had his last round on 04/13,,&; making him 9,10,&11 days post chemo. He had Neupogen on 04/16. He reports feeling cold "all the time". He is having abdominal pain and thinks he is getting a UTI. He had his suprapubic catheter changed out in [place] in 04/16. low abdomen, bladder spasms Pain Score (Numeric/FACES): 8 - Related Data Allergies Allergy/AdvReac Type Severity Reaction Status Date / Time niacin AdvReac Body Aches Verified 04/22/20 04:47 simvastatin [From Zocor] AdvReac Muscle Verified 04/22/20 04:47 Aches Home Meds: Home Meds Albuterol Sulfate [Albuterol Sulfate HFA] 1 - 2 puff IH ASDIRECTED PRN 10/11/14 [History] Aspirin [Pat Chewable Aspirin] 81 mg PO DAILY 10/11/14 [History] Budesonide/Formoterol [Symbicort 160-4.5 MCG] 2 puff INH BID 10/11/14 [History] Calcium Carbonate/Vitamin D3 [Caltrate 600 Plus D3 Tablet] 2 each PO DAILY 10/11/14 [History] Clopidogrel [Plavix] 75 mg PO DAILY 10/11/14 [History] Fish Oil/[place]-3 Fatty Acids [Fish Oil 1,000 MG] 1 each PO DAILY 10/11/14 [History] LORazepam [Ativan] 1 mg PO BEDTIME 10/11/14 [History] Mesalamine [Lialda] 2 tab PO DAILY 10/11/14 [History] Metoprolol Tartrate [Lopressor] 50 mg PO BID 10/11/14 [History] Montelukast Sodium [Singulair] 10 mg PO DAILY 10/11/14 [History] Nitroglycerin [Nitro-Dur] 1 each TD DAILY 10/11/14 [History] Nitroglycerin [Nitrostat] 0.4 mg SL ASDIRECTED PRN 10/11/14 [History] Pramipexole Di-HCl [Mirapex] 0.5 mg PO DAILY 10/11/14 [History] Rosuvastatin [Crestor] 20 mg PO DAILY 10/11/14 [History] Albuterol [Proventil Neb Soln] 2.5 mg INH QID PRN 08/04/17 [History] Amitriptyline [Elavil] 10 mg PO BEDTIME 08/04/17 [History] Ascorbic Acid [Vitamin C] 1,000 mg PO DAILY 08/04/17 [History] Cholecalciferol (Vitamin D3) [Vitamin D3] 1,000 units PO DAILY 08/04/17 [History] Clobetasol [Temovate 0.05% Oint] 1 applic TOP ASDIRECTED 08/04/17 [History] Cyanocobalamin (Vitamin B12) [Vitamin B12] 500 mcg PO ASDIRECTED 08/04/17 [History] Cyanocobalamin/Folic AC/Vit B6 [B Complex-Folic Acid] 1 tab PO DAILY 08/04/17 [History] Gabapentin [Neurontin] 300 mg PO TID 08/04/17 [History] Triamcinolone Acetonide [Triamcinolone Acetonide 0.1% Crm] 1 applic TOP BID PRN 08/04/17 [History] Ubidecarenone [Co Q-10] 75 mg PO DAILY 08/04/17 [History] Calcium Carbonate/Vitamin D3 [Calcium Carbonate/Vitamin D 1250 MG-200 Unit] 2 tab PO DAILY tablet 08/05/17 [Rx] Ciprofloxacin [Ciprofloxacin HCl] 1 tab PO BID 05/08/19 [History] Past Medical History HEENT History: Reports: Otitis Media, Sinusitis, Other (See Below) Other HEENT History: awaiting ear doctor appt.--tube came out and is effecting hearing, pt. has to keep an ear plug in or he hears his heartbeat while trying to sleep and it keeps him from sleeping. Cardiovascular History: Reports: Bypass, CAD, High Cholesterol, Pacemaker, Other (See Below) Other Cardiovascular History: cerebralvascular small vessel disease. AV block. carotid artery stenosis Respiratory History: Reports: Asthma, Sleep Apnea Gastrointestinal History: Reports: GERD, Other (See Below) Other Gastrointestinal History: benign neoplasm of colon. ulcerative colitis Genitourinary History: Reports: Prostate Disorder, Renal Calculus Musculoskeletal History: Reports: Other (See Below) Other Musculoskeletal History: bilateral sacroiliac joints. closed pelvic fracture. R. 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 Psychiatric History: Reports: Anxiety, Other (See Below) Other Psychiatric History: restless legs Endocrine/Metabolic History: Reports: Obesity/BMI 30+ Review of Systems - Review of Systems Review Of Systems: See Below Constitutional: Reports: Chills Eyes: Reports: No Symptoms Ears: Reports: No Symptoms Nose: Reports: No Symptoms Mouth/Throat: Reports: No Symptoms Respiratory: Reports: No Symptoms Cardiovascular: Reports: No Symptoms GI/Abdominal: Reports: Abdominal Pain Genitourinary: Reports: Other (Bladder Spasms) Musculoskeletal: Reports: No Symptoms Skin: Reports: No Symptoms Neurological: Reports: No Symptoms Psychiatric: Reports: No Symptoms ED EXAM, GENERAL - Physical Exam Exam: See Below General Appearance: Alert, WD/WN, No Apparent Distress (Elderly male) Eye Exam: Bilateral Eye: PERRL Ears: Normal External Exam, Normal Canal, Hearing Grossly Normal, Normal TMs Nose: Normal Inspection Throat/Mouth: Normal Voice (teeth in porr repair, tongue slighty dry), Other Head: Atraumatic, Normocephalic Neck: Normal Inspection Respiratory/Chest: No Respiratory Distress, Lungs Clear, Normal Breath Sounds, Chest Non-Tender Cardiovascular: Normal Peripheral Pulses, Regular Rate, Rhythm, No Murmur GI/Abdominal: Normal Bowel Sounds, Guarding, Tender (gaurding with any movement to abdomen region) (Male) Exam: Other (note suprapubic catheter in place, note mild redeness about 4cm around suprapubic insertion site, no drainage noted at this time) Rectal (Males) Exam: Deferred Back Exam: Normal Inspection Extremities: Normal Inspection, Normal Range of Motion, Normal Capillary Refill Neurological: Alert, Oriented, CN II-XII Intact, Normal Cognition, No Motor/Sensory Deficits Psychiatric: Normal Affect, Normal Mood Skin Exam: Warm, Dry, Intact, Normal Color Lymphatic: No Adenopathy Course - Vital Signs Text/Narrative:: 040 The patient was seen by the MELANGEUR OPERATOR. Labs ordered. He was given a liter of NS and Fentanyl 50 mcg IVP for pain. 0450 Patient feeling better from pain meds. Labs reviewed. WBC=0.5 and Plt=40, both critical lows. ANC calculated to 40, making the patient severely neutropenic. + Nitrites in the UA, so suspect urinary tract as the source. Blood cultures x2 collected. Cefipime 2gm IVPB and Vancomycin 1gm IVPB ordered. 0505 [facility] contacted and transfer requested. Advised that all admissions are elevated to administration approval, awaiting response at this time. [address] Tidwell and patient accepted. Code status clarified with the patient and his and he is a full code. Will arrange ground transfer by [facility] to the [facility] location. Patient remained stable until leaving the ER. Last Recorded V/S: Last Vital Signs Temp 36.8 C 04/22/20 03:35 Pulse 69 04/22/20 03:35 Resp 16 04/22/20 03:35 BP 147/51 H 04/22/20 03:35 Pulse Ox 98 04/22/20 03:35 - Orders/Labs/Meds Orders: Active Orders 24 hr Category Date Time Status CULTURE BLOOD [BC] Stat Lab 04/22/20 04:47 Ordered CULTURE BLOOD [BC] Stat Lab 04/22/20 04:47 Ordered CULTURE URINE [RM] Stat Lab 04/22/20 04:00 Received Vancomycin 1 gm Med 04/22/20 04:49 Ordered Sodium Chloride 0.9% [Normal Saline (AdvBag)] 250 ml IV STAT Blood Culture x2 Reflex Set [OM.PC] Stat Oth 04/22/20 04:47 Ordered Medication Orders Vancomycin HCl 1 gm/ Sodium (Chloride) 250 mls @ 250 mls/hr IV STAT ONE Stop: 04/22/20 05:48 Last Admin: 04/22/20 05:25 Dose: 250 mls/hr Documented by: Labs: Laboratory Tests 04/22/20 04/22/20 04/22/20 Range/Units 04:00 04:14 04:14 WBC 0.5 L* (4.0-10.0) x10^3/uL RBC 2.54 L (4.5-6.0) x10^6/uL Hgb 8.2 L (14.0-18.0) g/dL Hct 24.6 L (40.0-52.0) % MCV 96.9 H D (78.0-93.0) fL MCH 32.3 H (26.0-32.0) pg MCHC 33.3 (32.0-36.0) g/dL RDW Coeff of Xochilt 11.9 (10.0-15.0) % Plt Count 45 L* (130-400) x10^3/uL Add Manual Diff Yes Neutrophils % (Manual) 8 L (50-80) % Lymphocytes % (Manual) 80 H (25-50) % Monocytes % (Manual) 12 H (2-11) % Platelet Estimate Marked dec L Macrocytosis 1+ slight H Sodium 136 (136-145) mmol/L Potassium 4.4 (3.5-5.1) mmol/L Chloride 102 (98-107) mmol/L Carbon Dioxide 25 (21-32) mmol/L Anion Gap 13.4 (10-20) mmol/L BUN 20 H (7-18) mg/dL Creatinine 1.2 (0.70-1.30) mg/dL Est Cr Clr Drug Dosing TNP Estimated GFR (MDRD) 58 Glucose 110 H (74-106) mg/dL Calcium 8.4 L (8.5-10.1) mg/dL Urine Color Light yellow (YELLOW) Urine Appearance Clear (CLEAR) Urine pH 7.0 (5.0-8.0) Ur Specific [place] 1.025 Urine Protein 100 H (NEGATIVE) mg/dL Urine Glucose (UA) Negative (NEGATIVE) mg/dL Urine Ketones Negative (NEGATIVE) mg/dL Urine Occult Blood Moderate H (NEGATIVE) Urine Nitrite Positive H (NEGATIVE) Urine Bilirubin Negative (NEGATIVE) Urine Urobilinogen 0.2 (0.2) EU/dL Ur Leukocyte Esterase Negative (NEGATIVE) U Hyaline Cast (Auto) Rare Urine RBC 0-5 (NOT SEEN) /HPF Urine WBC 0-5 (NOT SEEN) /HPF Ur Squamous Epith Cells Not seen (NEGATIVE) /HPF Urine Bacteria Few H (NEGATIVE) /HPF Urine Mucus Not seen (NEGATIVE) /LPF Meds: Medications Generic Name Dose Route Start Last Admin Trade Name Freq PRN Reason Stop Dose Admin Vancomycin HCl 1 gm/ Sodium 250 mls @ 250 mls/hr 04/22/20 04:49 04/22/20 05:25 Chloride IV 04/22/20 05:48 250 mls/hr STAT ONE Administration Discontinued Medications Generic Name Dose Route Start Last Admin Trade Name Beth PRN Reason Stop Dose Admin Cefepime HCl Confirm 04/22/20 05:13 Maxipime Administered 04/22/20 05:14 Dose 1 gm .ROUTE .STK-MED ONE Cefepime HCl 2 gm 04/22/20 05:46 Maxipime IVPUSH 04/22/20 05:47 STAT ONE Fentanyl 50 mcg 04/22/20 04:09 04/22/20 04:35 Sublimaze IVPUSH 04/22/20 04:10 50 mcg ONETIME ONE Administration Sodium Chloride 1,000 mls @ 999 mls/hr 04/22/20 04:09 04/22/20 04:15 Normal Saline IV 04/22/20 05:09 999 mls/hr ONETIME ONE Administration Cefepime HCl 2 gm/ Sodium 100 mls @ 200 mls/hr 04/22/20 04:49 Chloride IV 04/22/20 05:18 STAT ONE Cefepime HCl 2 gm/ Sodium 100 mls @ 200 mls/hr 04/22/20 04:58 Chloride IV 04/22/20 05:27 STAT ONE Departure - Departure Time of Disposition: 05:30 Disposition: DC/[facility]fer to [facility] 02 Preliminary Cause of *Q: Sepsis & Multi System Organ Failure Clinical Impression: UTI, Urinary tract infectious disease, Neutropenia associated with infection, Prostate cancer, Chemotherapy-induced thrombocytopenia - Discharge Information Forms: ED Department Discharge, Interfacility Transfer [facility] Sepsis Event Note (ED) - Focused Exam Vital Signs: Vital Signs Temp Temp Pulse Resp BP Pulse Ox 04/22/20 03:35 36.8 C 37.3 C 69 16 147/51 H 98 - My Orders Last 24 Hours: My Active Orders 04/22/20 04:00 CULTURE URINE [RM] Stat 04/22/20 04:47 CULTURE BLOOD [BC] Stat CULTURE BLOOD [BC] Stat Blood Culture x2 Reflex Set [OM.PC] Stat 04/22/20 04:49 Vancomycin 1 gm Sodium Chloride 0.9% [Normal Saline (AdvBag)] 250 ml IV STAT - Assessment/Plan Last 24 Hours: My Active Orders 04/22/20 04:00 CULTURE URINE [RM] Stat 04/22/20 04:47 CULTURE BLOOD [BC] Stat CULTURE BLOOD [BC] Stat Blood Culture x2 Reflex Set [OM.PC] Stat 04/22/20 04:49 Vancomycin 1 gm Sodium Chloride 0.9% [Normal Saline (AdvBag)] 250 ml IV STAT Assessment:: 1)Severe Neutropenia 2)UTI 3)Hx Prostate CA 4)Chemotherapy Induced Thrombocytopenia Plan: -Transfer to [facility] to Dr Tidwell for acute inpatient admission
[2020-04-22 04:32] LABS: ANION GAP 13.4 mmol/L (10-20); CHLORIDE,CL 102 mmol/L (98-107); SODIUM,NA 136 mmol/L (136-145)
[2020-04-22] MEDS: fentaNYL 100 MCG/2 ML SDV IVPUSH ONE (04:35)
[2020-04-22] MEDS ORDERED: Cefepime 2 GM in Sodium Chloride 0.9% 100 ML IV ONE ×2 (04:49→04:58)
[2020-04-22] MEDS ORDERED: Cefepime 1 GM Vial ONE (05:13)
[2020-04-22] MEDS: Cefepime 1 GM Vial IVPUSH ONE (05:14)
[2020-04-22] MEDS ORDERED: Sodium Chloride 0.9% 500 ML IV SCH (06:00)
[2020-04-22 06:07] VITALS: BP 93/54; PULSE 68
[2020-04-22] MEDS: Sodium Chloride 0.9% 1,000 ML IV SCH (06:30)
== END 2020-04-22 06:35 | disposition short-term general hospital (02) ==
LOC: VM.ED 03:34
DX: N39.0 Urinary tract infection, site not specified (principal); D70.3 Neutropenia due to infection; C61 Malignant neoplasm of prostate; D69.59 Other secondary thrombocytopenia; E78.00 Pure hypercholesterolemia, unspecified; I25.10 Atherosclerotic heart disease of native coronary artery without angina pectoris; J45.909 Unspecified asthma, uncomplicated; E66.9 Obesity, unspecified; F41.9 Anxiety disorder, unspecified; Z68.27 Body mass index [BMI] 27.0-27.9, adult; Z79.02 Long term (current) use of antithrombotics/antiplatelets; Z79.82 Long term (current) use of aspirin; Z79.899 Other long term (current) drug therapy
CPT/HCPCS: 36415; 80048; 81001; 85025; 87040; 87086; 87088; 87186; 96361; 96365; 96375; 99284; 99285-25; J0692; J3010; J3370; J7030; J7050

== ENCOUNTER 2020-06-14 02:15 | Emergency (ER) | payer MEDICARE, BC ==
--- NOTE | 2020-06-14 02:39 | EDM.PDOC ---
ED HPI GENERAL MEDICAL PROBLEM - General Chief Complaint: Genitourinary Problem Stated Complaint: Lower abdominal pain, bladder spasms, cath Time Seen by Provider: 06/14/20 02:30 Source of Information: Reports: Patient History Limitations: Reports: No Limitations - History of Present Illness INITIAL COMMENTS - FREE TEXT/NARRATIVE: Patient comes emergency department today from home with complaints of bladder pain as well as concerns for urinary tract infection. This patient has a long dwelling suprapubic catheter. For about the last week he has noticed some change in his urinary output that is more mucoid in nature. This is what his urinary tract infections typically start like. Last day or so he has had increased bladder pain and spasms which is another sign of a urinary tract infection for him. He has had normal output. No fever no chills. No weakness dizziness lightheadedness. No abdominal pain other than the bladder spasms he gets that are intermittent. No flank pain. No nausea no vomiting. No other abdominal pain. No weakness dizziness lightheadedness. No Covid exposure no Covid symptoms Low abdomen Pain Score (Numeric/FACES): 8 - Related Data Allergies Allergy/AdvReac Type Severity Reaction Status Date / Time niacin AdvReac Body Aches Verified 04/22/20 04:47 simvastatin [From Zocor] AdvReac Muscle Verified 04/22/20 04:47 Aches Home Meds: Home Meds Albuterol Sulfate [Albuterol Sulfate HFA] 1 - 2 puff IH ASDIRECTED PRN 10/11/14 [History] Aspirin [Pat Chewable Aspirin] 81 mg PO DAILY 10/11/14 [History] Mesalamine [Lialda] 2 tab PO DAILY 10/11/14 [History] Metoprolol Tartrate [Lopressor] 25 mg PO BID 10/11/14 [History] Montelukast Sodium [Singulair] 10 mg PO DAILY 10/11/14 [History] Nitroglycerin [Nitrostat] 0.4 mg SL ASDIRECTED PRN 10/11/14 [History] Pramipexole Di-HCl [Mirapex] 0.5 mg PO DAILY 10/11/14 [History] Rosuvastatin [Crestor] 20 mg PO DAILY 10/11/14 [History] Albuterol [Proventil Neb Soln] 2.5 mg INH QID PRN 08/04/17 [History] Ubidecarenone [Co Q-10] 75 mg PO DAILY 08/04/17 [History] Ciprofloxacin HCl [Cipro] 250 mg PO BID #10 tablet 06/14/20 [Rx] Finasteride [Proscar] 5 mg PO DAILY 06/14/20 [History] Hydrocodone/Acetaminophen [Hydrocodone-Acetamin 5-325 mg] 1 each PO Q4HR PRN 06/14/20 [History] Lidocaine/Prilocaine [EMLA Crm] 1 applic TOP ASDIRECTED 06/14/20 [History] Ondansetron [Zofran] 8 mg PO Q8H PRN 06/14/20 [History] Propylene Glycol/PEG 400/Pf [Systane 0.3-0.4% Eye Drop] 1 drop EYEBOTH Q4HR PRN 06/14/20 [History] Sennosides/Docusate Sodium [Senna Plus 8.6-50 mg Softgel] 2 each PO DAILY PRN 06/14/20 [History] Trospium [Sanctura] 20 mg PO BID 06/14/20 [History] polyethylene glycoL 3350 [MiraLAX] 17 gm PO DAILY 06/14/20 [History] Past Medical History HEENT History: Reports: Otitis Media, Sinusitis, Other (See Below) Other HEENT History: awaiting ear doctor appt.--tube came out and is effecting hearing, pt. has to keep an ear plug in or he hears his heartbeat while trying to sleep and it keeps him from sleeping. Cardiovascular History: Reports: Bypass, CAD, High Cholesterol, Pacemaker, Other (See Below) Other Cardiovascular History: cerebralvascular small vessel disease. AV block. carotid artery stenosis Respiratory History: Reports: Asthma, Sleep Apnea Gastrointestinal History: Reports: GERD, Other (See Below) Other Gastrointestinal History: benign neoplasm of colon. ulcerative colitis Genitourinary History: Reports: Prostate Disorder, Renal Calculus Musculoskeletal History: Reports: Other (See Below) Other Musculoskeletal History: bilateral sacroiliac joints. closed pelvic fracture. R. 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 ED EXAM, RENAL/ - Physical Exam Exam: See Below Text/Narrative:: When I enter the room the patient really appears quite comfortable although intermittently every 5 minutes or so he has a sudden severe what appears to be cramping pain in his bladder. Exam Limited By: No Limitations General Appearance: Alert, WD/WN, Anxious, Mild Distress Respiratory/Chest: No Respiratory Distress, Lungs Clear Cardiovascular: Normal Peripheral Pulses, Regular Rate, Rhythm GI/Abdominal: Normal Bowel Sounds, Soft, Non-Tender, Other (There is a suprapubic catheter in place the site appears unremarkable. There is no drainage or discharge.) (Male) Exam: Other (Urine that is in the Monge bag is cloudy no antoni blood.) Rectal (Males) Exam: Deferred Back Exam: Normal Inspection, Full Range of Motion. No: CVA Tenderness (L), CVA Tenderness (R) Extremities: Normal Inspection, Normal Range of Motion, Normal Capillary Refill Neurological: Alert, Oriented, Normal Cognition, No Motor/Sensory Deficits Psychiatric: Normal Affect, Normal Mood Skin Exam: Warm, Dry, Intact, Normal Color, No Rash Course - Vital Signs Last Recorded V/S: Last Vital Signs Temp 97.7 F 06/14/20 02:15 Pulse 73 06/14/20 02:15 Resp 16 06/14/20 02:15 BP 138/54 L 06/14/20 02:15 Pulse Ox 96 06/14/20 02:15 - Orders/Labs/Meds Orders: Active Orders 24 hr Category Date Time Status CULTURE URINE [RM] Stat Lab 06/14/20 02:53 Received Labs: Laboratory Tests 06/14/20 Range/Units 02:45 Urine Color Yellow (YELLOW) POC Urine Appearance Slightly cloudy H (CLEAR) POC Urine pH 7.0 (5.0-8.0) Ur Specific [place] 1.015 (1.005-1.030) POC Urine Protein 300 H (NEGATIVE) POC Ur Glucose (UA) Negative (NEGATIVE) POC Urine Ketones Negative (NEGATIVE) POC Ur Occult Blood Large H (NEGATIVE) POC Urine Nitrite Positive H (NEGATIVE) POC Urine Bilirubin Negative (NEGATIVE) POC Urine Urobilinogen 0.2 (0.2) POC U Leukocyte Esteras Small H (NEGATIVE) Meds: Medications Discontinued Medications Generic Name Dose Route Start Last Admin Trade Name Beth PRN Reason Stop Dose Admin Hydrocodone Bitart/Acetaminophen 1 tab 06/14/20 03:03 06/14/20 03:10 [place] 325-5 Mg PO 06/14/20 03:04 1 tab ONETIME ONE Administration Hydrocodone Bitart/Acetaminophen 1 packet 06/14/20 03:03 06/14/20 03:11 Take Home: Acetam/Hydrocodon 325-5 Mg, 5 Pack PO 06/14/20 03:04 1 packet ONETIME ONE Administration Ciprofloxacin 250 mg 06/14/20 03:02 06/14/20 03:11 Ciprofloxacin Hcl PO 06/14/20 03:03 250 mg ONETIME ONE Administration - Re-Assessments/Exams Free Text/Narrative Re-Assessment/Exam: 06/14/20 18:12 UA dip positive for nitrites. Urine culture pending. Cipro PO Hydrocodone for pain. We will have him change his catheter in 1-2 days after the initiation of the anti-biotics. He is comfortable with this plan and his questions answered. Departure - Departure Time of Disposition: 03:04 Disposition: Home, Self-Care 01 Clinical Impression: Complicated UTI (urinary tract infection) - Discharge Information Prescriptions: Ciprofloxacin HCl [Cipro] 250 mg PO BID #10 tablet Instructions: Antibiotic Medicine, Adult, [id number], Urinary Tract Infection, Adult, [id number], Infection Prevention in the Home, Pain Medicine Instructions, [id number] Referrals: PCP,Unobtain [Ordering Only Provider] - Forms: ED Department Discharge Additional Instructions: Tylenol and or Ibuprofen as needed for pain. Increase fluid intake over the next few days. Cipro 1 tablet twice daily for the next 5 days. First dose given in the ED. RX sent to [facility]. Call Dr. Terell Bradford office this morning discuss UTI with her and see if she would like to do anything else with the recent C-diff infection. If pain not controlled with above. [place], 1 tablet every 6 hrs with food as needed for pain. Starter pack given from the ED. Caution sedation. Return to the ED if new or worsening symptoms. Follow up with Dr. Terell Bradford in the next 3-5 days if not improving sooner if worse. - My Orders Last 24 Hours: My Active Orders 06/14/20 02:53 CULTURE URINE [RM] Stat - Assessment/Plan Last 24 Hours: My Active Orders 06/14/20 02:53 CULTURE URINE [] Stat
[2020-06-14] MEDS ORDERED: Ciprofloxacin 250 MG Tab PO ONE (03:02)
[2020-06-14] MEDS ORDERED: Acetaminophen/HYDROcodone 325-5 MG Tab PO ONE (03:03)
[2020-06-14] MEDS ORDERED: Take Home: Acetaminophen/HYDROcodone 325-5 MG, 5 Tab Pack PO ONE (03:03)
[2020-06-14 04:53] VITALS: BP 138/54; PULSE 73
== END 2020-06-14 03:25 | disposition home or self-care (01) ==
LOC: VM.ED 02:15
DX: N39.0 Urinary tract infection, site not specified (principal); I25.10 Atherosclerotic heart disease of native coronary artery without angina pectoris; E78.00 Pure hypercholesterolemia, unspecified; J45.909 Unspecified asthma, uncomplicated; F41.9 Anxiety disorder, unspecified; E66.9 Obesity, unspecified; Z68.26 Body mass index [BMI] 26.0-26.9, adult; Z88.8 Allergy status to other drugs, medicaments and biological substances; Z95.1 Presence of aortocoronary bypass graft; Z79.82 Long term (current) use of aspirin; Z79.899 Other long term (current) drug therapy
CPT/HCPCS: 81002; 87086; 87088; 87186; 99283; 99284; A9270

== ENCOUNTER 2020-06-28 00:59 | Emergency (ER) | payer MEDICARE, BC ==
[2020-06-28] MEDS ORDERED: Sodium Chloride 0.9% 10 ML Syringe FLUSH PRN (01:01)
--- NOTE | 2020-06-28 01:01 | EDM.PDOC ---
ED HPI GENERAL MEDICAL PROBLEM - General Chief Complaint: Chest Pain Stated Complaint: Right Sided Chest Pain Time Seen by Provider: 06/28/20 01:01 Source of Information: Reports: Patient History Limitations: Reports: No Limitations - History of Present Illness INITIAL COMMENTS - FREE TEXT/NARRATIVE: Patient emergency department today from home with complaints of right anterior chest pain. This patient for most of the day has had sharp shooting stabbing intermittent right anterolateral chest pain. The pain gets worse with deep breath cough and movement. He has had no cough or congestion. No fever no chills. No shortness of breath or difficulty breathing. He has no midsternal chest pain. He is no palpitations weakness dizziness lightheadedness. No syncope. He has no abdominal pain nausea or vomiting. No back pain. No paresthesias. He is currently receiving chemotherapy for prostate cancer and is also receiving Neupogen with his chemotherapy which he just received 2 days ago. No Covid symptoms no Covid exposure. Right Chest Pain Score (Numeric/FACES): 5 - Related Data Allergies Allergy/AdvReac Type Severity Reaction Status Date / Time niacin AdvReac Body Aches Verified 06/28/20 02:26 simvastatin [From Zocor] AdvReac Muscle Verified 06/28/20 02:26 Aches Home Meds: Home Meds Albuterol Sulfate [Albuterol Sulfate HFA] 1 - 2 puff IH ASDIRECTED PRN 10/11/14 [History] Aspirin [Pat Chewable Aspirin] 81 mg PO DAILY 10/11/14 [History] Mesalamine [Lialda] 2 tab PO DAILY 10/11/14 [History] Metoprolol Tartrate [Lopressor] 25 mg PO BID 10/11/14 [History] Montelukast Sodium [Singulair] 10 mg PO DAILY 10/11/14 [History] Nitroglycerin [Nitrostat] 0.4 mg SL ASDIRECTED PRN 10/11/14 [History] Pramipexole Di-HCl [Mirapex] 0.5 mg PO DAILY 10/11/14 [History] Rosuvastatin [Crestor] 20 mg PO DAILY 10/11/14 [History] Albuterol [Proventil Neb Soln] 2.5 mg INH QID PRN 08/04/17 [History] Ubidecarenone [Co Q-10] 75 mg PO DAILY 08/04/17 [History] Ciprofloxacin HCl [Cipro] 250 mg PO BID #10 tablet 06/14/20 [Rx] Finasteride [Proscar] 5 mg PO DAILY 06/14/20 [History] Hydrocodone/Acetaminophen [Hydrocodone-Acetamin 5-325 mg] 1 each PO Q4HR PRN 06/14/20 [History] Lidocaine/Prilocaine [EMLA Crm] 1 applic TOP ASDIRECTED 06/14/20 [History] Ondansetron [Zofran] 8 mg PO Q8H PRN 06/14/20 [History] Propylene Glycol/PEG 400/Pf [Systane 0.3-0.4% Eye Drop] 1 drop EYEBOTH Q4HR PRN 06/14/20 [History] Sennosides/Docusate Sodium [Senna Plus 8.6-50 mg Softgel] 2 each PO DAILY PRN 06/14/20 [History] Trospium [Sanctura] 20 mg PO BID 06/14/20 [History] polyethylene glycoL 3350 [MiraLAX] 17 gm PO DAILY 06/14/20 [History] Past Medical History HEENT History: Reports: Otitis Media, Sinusitis, Other (See Below) Other HEENT History: awaiting ear doctor appt.--tube came out and is effecting hearing, pt. has to keep an ear plug in or he hears his heartbeat while trying to sleep and it keeps him from sleeping. Cardiovascular History: Reports: Bypass, CAD, High Cholesterol, Pacemaker, Other (See Below) Other Cardiovascular History: cerebralvascular small vessel disease. AV block. carotid artery stenosis Respiratory History: Reports: Asthma, Sleep Apnea Gastrointestinal History: Reports: GERD, Other (See Below) Other Gastrointestinal History: benign neoplasm of colon. ulcerative colitis Genitourinary History: Reports: Prostate Disorder, Renal Calculus Musculoskeletal History: Reports: Other (See Below) Other Musculoskeletal History: bilateral sacroiliac joints. closed pelvic fracture. R. 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 ED EXAM, GENERAL - Physical Exam Exam: See Below Free Text/Narrative:: The patient is clearly in no distress. He is alert appropriate interactive. Does not want to take sure she misses a graft the right anterior or lateral chest. He also has a severity with movement of his right arm. Exam Limited By: No Limitations General Appearance: Alert, WD/WN, No Apparent Distress Eye Exam: Bilateral Eye: EOMI, PERRL Ears: Normal External Exam Nose: Normal Inspection Throat/Mouth: Normal Inspection Head: Atraumatic, Normocephalic Neck: Normal Inspection, Supple Respiratory/Chest: No Respiratory Distress, Lungs Clear, Normal Breath Sounds, Other (He has some the mild tenderness on the right anterolateral aspect of the chest and the anterior mid axillary line about the fifth intercostal space. There is no bruising swelling ecchymosis bony deformities subcutaneous emphysema. The chest is otherwise atraumatic and unremarkable.) Cardiovascular: Normal Peripheral Pulses, Regular Rate, Rhythm Peripheral Pulses: 2+: Radial (L), Radial (R) GI/Abdominal: Normal Bowel Sounds, Soft, Non-Tender (Male) Exam: Deferred Rectal (Males) Exam: Deferred Back Exam: Normal Inspection, Full Range of Motion Extremities: Normal Inspection, Normal Range of Motion, Non-Tender, Normal Capillary Refill Neurological: Alert, Oriented, Normal Cognition, No Motor/Sensory Deficits Psychiatric: Normal Affect, Normal Mood Skin Exam: Warm, Dry, Intact, Normal Color Lymphatic: No Adenopathy (Pain.) #1 Interpretation EKG Date: 06/27/20 Time: 01:15 Rhythm: Other (paced rhythm) Course - Vital Signs Last Recorded V/S: Last Vital Signs Temp 97.2 F 06/28/20 02:19 Pulse 74 06/28/20 02:19 Resp 13 06/28/20 02:19 BP 147/53 H 06/28/20 02:19 Pulse Ox 97 06/28/20 02:19 - Orders/Labs/Meds Labs: Laboratory Tests 06/28/20 06/28/20 06/28/20 Range/Units 01:32 01:32 01:32 WBC 22.1 H* (4.0-10.0) x10^3/uL RBC 2.50 L (4.5-6.0) x10^6/uL Hgb 7.8 L (14.0-18.0) g/dL Hct 24.0 L (40.0-52.0) % MCV 96.0 H (78.0-93.0) fL MCH 31.2 (26.0-32.0) pg MCHC 32.5 (32.0-36.0) g/dL RDW Coeff of Xochilt 15.6 H (10.0-15.0) % Plt Count 112 L (130-400) x10^3/uL Add Manual Diff Yes Neutrophils % (Manual) 95 H (50-80) % Lymphocytes % (Manual) 3 L (25-50) % Monocytes % (Manual) 1 L (2-11) % Metamyelocytes % 1 H (0) % Platelet Estimate Decreased L Hypochromasia 3+ marked H Anisocytosis 3+ marked H Macrocytosis 2+ moderate H Sodium 138 (136-145) mmol/L Potassium 3.7 (3.5-5.1) mmol/L Chloride 104 (98-107) mmol/L Carbon Dioxide 27 (21-32) mmol/L Anion Gap 10.7 (10-20) mmol/L BUN 29 H (7-18) mg/dL Creatinine 1.2 (0.70-1.30) mg/dL Est Cr Clr Drug Dosing TNP Estimated GFR (MDRD) 58 Glucose 114 H (74-106) mg/dL Lactic Acid 0.8 (0.4-2.0) mmol/L Calcium 8.1 L (8.5-10.1) mg/dL Corrected Calcium 8.90 (8.5-10.1) mg/dL Total Bilirubin 0.4 (0.2-1.0) mg/dL AST 13 L (15-37) U/L ALT 17 (16-63) U/L Alkaline Phosphatase 117 H (46-116) U/L Troponin I 0.019 (<=0.056) ng/mL C-Reactive Protein (<=0.9) mg/dL Total Protein 6.1 L (6.4-8.2) g/dL Albumin 3.0 L (3.4-5.0) g/dL Globulin 3.1 Albumin/Globulin Ratio 0.97 Urine Color (YELLOW) Urine Appearance (CLEAR) Urine pH (5.0-8.0) Ur Specific [place] Urine Protein (NEGATIVE) mg/dL Urine Glucose (UA) (NEGATIVE) mg/dL Urine Ketones (NEGATIVE) mg/dL Urine Occult Blood (NEGATIVE) Urine Nitrite (NEGATIVE) Urine Bilirubin (NEGATIVE) Urine Urobilinogen (0.2) EU/dL Ur Leukocyte Esterase (NEGATIVE) Urine RBC (NOT SEEN) /HPF Urine WBC (NOT SEEN) /HPF Ur Squamous Epith Cells (NEGATIVE) /HPF Amorphous Sediment Urine Bacteria (NEGATIVE) /HPF Urine Mucus (NEGATIVE) /LPF 06/28/20 06/28/20 Range/Units 01:32 02:09 WBC (4.0-10.0) x10^3/uL RBC (4.5-6.0) x10^6/uL Hgb (14.0-18.0) g/dL Hct (40.0-52.0) % MCV (78.0-93.0) fL MCH (26.0-32.0) pg MCHC (32.0-36.0) g/dL RDW Coeff of Xochilt (10.0-15.0) % Plt Count (130-400) x10^3/uL Add Manual Diff Neutrophils % (Manual) (50-80) % Lymphocytes % (Manual) (25-50) % Monocytes % (Manual) (2-11) % Metamyelocytes % (0) % Platelet Estimate Hypochromasia Anisocytosis Macrocytosis Sodium (136-145) mmol/L Potassium (3.5-5.1) mmol/L Chloride (98-107) mmol/L Carbon Dioxide (21-32) mmol/L Anion Gap (10-20) mmol/L BUN (7-18) mg/dL Creatinine (0.70-1.30) mg/dL Est Cr Clr Drug Dosing Estimated GFR (MDRD) Glucose (74-106) mg/dL Lactic Acid (0.4-2.0) mmol/L Calcium (8.5-10.1) mg/dL Corrected Calcium (8.5-10.1) mg/dL Total Bilirubin (0.2-1.0) mg/dL AST (15-37) U/L ALT (16-63) U/L Alkaline Phosphatase (46-116) U/L Troponin I (<=0.056) ng/mL C-Reactive Protein 3.0 H (<=0.9) mg/dL Total Protein (6.4-8.2) g/dL Albumin (3.4-5.0) g/dL Globulin Albumin/Globulin Ratio Urine Color Light yellow (YELLOW) Urine Appearance Cloudy H (CLEAR) Urine pH 5.5 (5.0-8.0) Ur Specific [place] 1.020 Urine Protein 100 H (NEGATIVE) mg/dL Urine Glucose (UA) Negative (NEGATIVE) mg/dL Urine Ketones Negative (NEGATIVE) mg/dL Urine Occult Blood Moderate H (NEGATIVE) Urine Nitrite Negative (NEGATIVE) Urine Bilirubin Negative (NEGATIVE) Urine Urobilinogen 0.2 (0.2) EU/dL Ur Leukocyte Esterase Trace H (NEGATIVE) Urine RBC 0-5 (NOT SEEN) /HPF Urine WBC 0-5 (NOT SEEN) /HPF Ur Squamous Epith Cells Not seen (NEGATIVE) /HPF Amorphous Sediment Moderate Urine Bacteria Few H (NEGATIVE) /HPF Urine Mucus Few H (NEGATIVE) /LPF Meds: Medications Discontinued Medications Generic Name Dose Route Start Last Admin Trade Name Freq PRN Reason Stop Dose Admin Acetaminophen 1,000 mg 06/28/20 01:43 06/28/20 01:52 Tylenol Extra Strength PO 06/28/20 01:44 1,000 mg ONETIME ONE Administration Sodium Chloride 10 ml 06/28/20 01:01 Saline Flush FLUSH ASDIRECTED PRN Keep Vein Open - Radiology Interpretation Free Text/Narrative:: Chest x-ray per radiology shows no acute findings. Unchanged chronic findings of pacemaker. - Re-Assessments/Exams Free Text/Narrative Re-Assessment/Exam: Laboratory evaluation shows a white blood cell count of 22.1. He does not have a fever or any other symptomology. He is receiving Neupogen for active prostate cancer and chemotherapy. His hemoglobin is 7.8 and have a baseline. Platelet count 112. He has a hemoglobin of 29 creatinine 1.2. Glucose 114. Calcium 8.1. Troponin 0.019. Urinalysis was small amount of blood but otherwise noninfectious.. The patient was given a gram of Tylenol for resolution of his pain. This is clearly musculoskeletal pain in nature especially with deep breath cough and movement. His leukocytosis is caused from his Neupogen that he is receiving because of his chemotherapy. We will discharge him home at this time with symptomatic management. He is comfortable with this plan his questions are answered. Departure - Departure Time of Disposition: 02:31 Disposition: Home, Self-Care 01 Clinical Impression: Chest pain, musculoskeletal Instructions: Chest Wall Pain, [id number], Nonspecific Chest Pain, Adult, [id number] Referrals: PCP,Unobtain [Ordering Only Provider] - Forms: ED Department Discharge Additional Instructions: Tylenol as needed for the musculoskeletal chest pain. Ice or heat to the area. Return to the ED if new or worsening symptoms. Follow up with PCP in the next 4-6 days if not improving sooner if worse.
[2020-06-28] MEDS ORDERED: Acetaminophen 500 MG Tab PO ONE (01:43)
[2020-06-28 02:05] LABS: ANION GAP 10.7 mmol/L (10-20); CHLORIDE,CL 104 mmol/L (98-107); SODIUM,NA 138 mmol/L (136-145)
[2020-06-28 02:26] VITALS: BP 147/53; PULSE 74
--- NOTE | 2020-06-28 08:51 | CR ---
[id number] RAD/RAD Chest PA And Lateral EXAM: RAD Chest PA And Lateral INDICATION: CHEST PAIN, SHORTNESS OF BREATH COMPARISON: July 2017. DISCUSSION: Cardiac megaly central vascular congestion, similar to the prior examination. Left chest wall cardiac conduction device is also similar in appearance. Placement of a right IJ port catheter since the prior examination. Tip in the SVC. Bibasal opacities left greater than right. On the left is are linear in appearance and unchanged from 2018 consistent with scarring. No evidence of pneumonia. No pleural effusion or pneumothorax. IMPRESSION: No acute findings or significant change from 2018. Darius Owens MD 06/28/20 0850 Thank you for allowing us to participate in the care of your patient.
== END 2020-06-28 02:43 | disposition home or self-care (01) ==
LOC: VM.ED 00:59
DX: R07.89 Other chest pain (principal); I25.10 Atherosclerotic heart disease of native coronary artery without angina pectoris; E78.00 Pure hypercholesterolemia, unspecified; J45.909 Unspecified asthma, uncomplicated; E66.9 Obesity, unspecified; Z68.27 Body mass index [BMI] 27.0-27.9, adult; Z88.8 Allergy status to other drugs, medicaments and biological substances; Z79.82 Long term (current) use of aspirin; Z79.899 Other long term (current) drug therapy
CPT/HCPCS: 71046; 80053; 81001; 83605; 84484; 85025; 86140; 87086; 93005; 93010; 99284; 99285-25; A9270-GY

== ENCOUNTER 2020-09-24 23:02 | Emergency (ER) | payer MEDICARE, BC ==
[2020-09-24] MEDS ORDERED: GI Cocktail Oral Solution 30 ML PO ONE (23:22)
--- NOTE | 2020-09-24 23:40 | EDM.PDOC ---
ED HPI GENERAL MEDICAL PROBLEM - General Chief Complaint: Cardiovascular Problem Stated Complaint: chest discomfort Time Seen by Provider: 09/24/20 23:15 Source of Information: Reports: Patient, Family History Limitations: Reports: No Limitations - History of Present Illness INITIAL COMMENTS - FREE TEXT/NARRATIVE: Govind is an 80 year old male who presents with chest discomfort. States has had since yesterday afternoon. Belching a great deal. No nausea or vomiting. Has been running a low grade fever. relates has history of prostate cancer with concerns for mets to the lung. Has been taking chemo for about 1 1/2 years. Had chemo on Sunday. Also had a Neulasta shot and his covid vaccine yesterday. Admits that last month after chemo, did have similar discomfort in the same area but was not as intense nor did it last this long. has given him tylenol and antacids with some relief. Were enroute to [facility] as does have his oncologist there but decided to come back home. As the pain persisted in to the evening, opted to be seen here. also relates he has not had much to eat today, did make him soup for supper. Onset: Gradual Duration: Hour(s):, Constant Location: Reports: Chest Quality: Reports: Ache Severity: Severe Improves with: Reports: None Associated Symptoms: Reports: Chest Pain, Nausea/Vomiting. 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: Reports: Other Medication(s) (tums) Mid - Chest Pain Score (Numeric/FACES): 7 - Related Data Allergies Allergy/AdvReac Type Severity Reaction Status Date / Time niacin AdvReac Body Aches Verified 09/25/20 01:30 simvastatin [From Zocor] AdvReac Muscle Verified 09/25/20 01:30 Aches Home Meds: Home Meds Albuterol Sulfate [Albuterol Sulfate HFA] 1 - 2 puff IH ASDIRECTED PRN 10/11/14 [History] Aspirin [Pat Chewable Aspirin] 81 mg PO DAILY 10/11/14 [History] Mesalamine [Lialda] 2 tab PO DAILY 10/11/14 [History] Metoprolol Tartrate [Lopressor] 25 mg PO BID 10/11/14 [History] Montelukast Sodium [Singulair] 10 mg PO DAILY 10/11/14 [History] Nitroglycerin [Nitrostat] 0.4 mg SL ASDIRECTED PRN 10/11/14 [History] Pramipexole Di-HCl [Mirapex] 0.5 mg PO DAILY 10/11/14 [History] Rosuvastatin [Crestor] 20 mg PO DAILY 10/11/14 [History] Albuterol [Proventil Neb Soln] 2.5 mg INH QID PRN 08/04/17 [History] Ubidecarenone [Co Q-10] 75 mg PO DAILY 08/04/17 [History] Finasteride [Proscar] 5 mg PO DAILY 06/14/20 [History] Hydrocodone/Acetaminophen [Hydrocodone-Acetamin 5-325 mg] 1 each PO Q4HR PRN 06/14/20 [History] Lidocaine/Prilocaine [EMLA Crm] 1 applic TOP ASDIRECTED 06/14/20 [History] Ondansetron [Zofran] 8 mg PO Q8H PRN 06/14/20 [History] Propylene Glycol/PEG 400/Pf [Systane 0.3-0.4% Eye Drop] 1 drop EYEBOTH Q4HR PRN 06/14/20 [History] Sennosides/Docusate Sodium [Senna Plus 8.6-50 mg Softgel] 2 each PO DAILY PRN 06/14/20 [History] Trospium [Sanctura] 20 mg PO BID 06/14/20 [History] polyethylene glycoL 3350 [MiraLAX] 17 gm PO DAILY 06/14/20 [History] Ciprofloxacin HCl [Cipro] 500 mg PO BID 09/25/20 [History] Past Medical History HEENT History: Reports: Otitis Media, Sinusitis, Other (See Below) Other HEENT History: awaiting ear doctor appt.--tube came out and is effecting hearing, pt. has to keep an ear plug in or he hears his heartbeat while trying to sleep and it keeps him from sleeping. Cardiovascular History: Reports: Bypass, CAD, High Cholesterol, Pacemaker, Other (See Below) Other Cardiovascular History: cerebralvascular small vessel disease. AV block. carotid artery stenosis Respiratory History: Reports: Asthma, Sleep Apnea Gastrointestinal History: Reports: GERD, Other (See Below) Other Gastrointestinal History: benign neoplasm of colon. ulcerative colitis Genitourinary History: Reports: Prostate Disorder, Renal Calculus Musculoskeletal History: Reports: Other (See Below) Other Musculoskeletal History: bilateral sacroiliac joints. closed pelvic fracture. R. 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 Denies: Edema, Lightheadedness Endocrine: Reports: Fatigue GI/Abdominal: Reports: Other (heartburn) : Reports: No Symptoms Musculoskeletal: Reports: No Symptoms Skin: Reports: No Symptoms Neurological: Reports: Weakness. Denies: Dizziness ED EXAM, GENERAL - Physical Exam Exam: See Below Exam Limited By: No Limitations General Appearance: Alert, WD/WN, No Apparent Distress, Mild Distress Ears: Normal External Exam, Normal TMs Nose: Normal Inspection, Normal Mucosa, No Blood Throat/Mouth: Normal Inspection, Normal Oropharynx Head: Normocephalic Neck: Normal Inspection, Supple, Non-Tender Respiratory/Chest: No Respiratory Distress, Lungs Clear, Normal Breath Sounds Cardiovascular: Regular Rate, Rhythm GI/Abdominal: Normal Bowel Sounds, Soft, Tender, Abnormal Bowel Sounds (midepigastric area) Extremities: Pedal Edema (2+ pitting edema) Neurological: Alert, Oriented Skin Exam: Warm, Dry Course - Vital Signs Last Recorded V/S: Last Vital Signs Temp 98.1 F 09/24/20 23:02 Pulse 91 09/24/20 23:02 Resp 16 09/24/20 23:02 BP 105/62 09/24/20 23:02 Pulse Ox 97 09/24/20 23:02 - Orders/Labs/Meds Orders: Active Orders 24 hr Category Date Time Status Chest 2V [CR] Stat Exams 03/05/21 23:22 Taken Labs: Laboratory Tests 09/24/20 09/24/20 Range/Units 23:39 23:39 WBC 47.1 H* (4.0-10.0) x10^3/uL RBC 2.38 L (4.5-6.0) x10^6/uL Hgb 7.8 L (14.0-18.0) g/dL Hct 24.6 L (40.0-52.0) % MCV 103.4 H D (78.0-93.0) fL MCH 32.8 H (26.0-32.0) pg MCHC 31.7 L (32.0-36.0) g/dL RDW Coeff of Xochilt 15.4 H (10.0-15.0) % Plt Count 126 L (130-400) x10^3/uL Add Manual Diff Yes Neutrophils % (Manual) 85 H (50-80) % Band Neutrophils % 13 H (0-6) % Lymphocytes % (Manual) 1 L (25-50) % Metamyelocytes % 1 H (0) % Platelet Estimate Decreased L Hypochromasia 3+ marked H Anisocytosis 2+ moderate H Ovalocytes 1+ slight H Sodium 135 L (136-145) mmol/L Potassium 4.5 (3.5-5.1) mmol/L Chloride 101 (98-107) mmol/L Carbon Dioxide 24 (21-32) mmol/L Anion Gap 14.5 (5-15) mmol/L BUN 35 H (7-18) mg/dL Creatinine 1.9 H (0.70-1.30) mg/dL Est Cr Clr Drug Dosing TNP Estimated GFR (MDRD) 34 Glucose 116 H (74-106) mg/dL Calcium 8.6 (8.5-10.1) mg/dL Corrected Calcium 9.00 (8.5-10.1) mg/dL Total Bilirubin 0.6 (0.2-1.0) mg/dL AST 32 (15-37) U/L ALT 39 (16-63) U/L Alkaline Phosphatase 80 (46-116) U/L Troponin I High Sens 125 H* (<=76) ng/L C-Reactive Protein 1.6 H (<=0.9) mg/dL Total Protein 7.0 (6.4-8.2) g/dL Albumin 3.5 (3.4-5.0) g/dL Globulin 3.5 Albumin/Globulin Ratio 1.00 Amylase 66 (25-115) U/L Lipase 76 (73-393) U/L Meds: Medications Discontinued Medications Generic Name Dose Route Start Last Admin Trade Name Freq PRN Reason Stop Dose Admin Al Hydroxide/Mg Hydroxide 30 ml 09/24/20 23:22 09/24/20 23:27 Gi Cocktail PO 09/24/20 23:23 30 ml ONETIME ONE Administration Al Hydroxide/Mg Hydroxide 30 ml 09/25/20 01:59 09/25/20 02:00 Mag-Al Plus PO 09/25/20 02:00 30 ml ONETIME ONE Administration Aspirin 324 mg 09/25/20 01:06 09/25/20 01:24 Aspirin PO 09/25/20 01:07 324 mg ONETIME ONE Administration Heparin Sodium (Porcine) 500 units 09/25/20 01:08 09/25/20 01:24 Heparin Lock Flush 100 Units/Ml IVPUSH 500 units ASDIRECTED PRN Administration Keep Vein Open - Re-Assessments/Exams Free Text/Narrative Re-Assessment/Exam: 09/24/20 23:58 Patient had GI cocktail and had almost immediate relief of the burning in his chest. Still pain-free, however, labs note high troponin I HS at 125. WBC is high at 47. Hemoglobin 7.8. Creatinine 1.9. contacted [facility] call and spoke with Dr. Mccauley in regards to patient status and lab results. Agreed to accept the patient in transfer for further work up related to high troponin. Patient and informed. Departure - Departure Time of Disposition: 01:05 Disposition: DC/Tfer to [facility] 02 Reason for Transfer *Q: Other (further cardiac evaluation) Condition: Undetermined Clinical Impression: Chest pain, History of recent chemotherapy, Prostate cancer Referrals: PCP,None [Primary Care Provider] - Forms: ED Department Discharge, Interfacility Transfer EMTALA Additional Instructions: Transfer ALS to [facility] to Dr. Mccauley Sepsis Event Note (ED) - Focused Exam Vital Signs: Vital Signs Temp Pulse Resp BP Pulse Ox 09/24/20 23:02 98.1 F 91 16 105/62 97 - My Orders Last 24 Hours: My Active Orders 09/24/20 23:22 Chest 2V [CR] Stat - Assessment/Plan Last 24 Hours: My Active Orders 09/24/20 23:22 Chest 2V [CR] Stat
[2020-09-25 00:25] LABS: CHLORIDE,CL 101 mmol/L (98-107); SODIUM,NA 135 mmol/L (136-145)
[2020-09-25 00:26] LABS: ANION GAP 14.5 mmol/L (5-15)
[2020-09-25] MEDS ORDERED: Aspirin 81 MG Tab.Chew PO ONE (01:06)
[2020-09-25 01:38] VITALS: BP 105/62; PULSE 91
[2020-09-25] MEDS ORDERED: Aluminum Hydroxide/Magnesium Hydroxide/Simethicone Susp 30 ML Cup PO ONE (01:59)
--- NOTE | 2020-09-25 08:25 | CR ---
[id number] RAD/RAD Chest PA And Lateral EXAM: RAD Chest PA And Lateral CLINICAL DATA: CHEST PAIN COMPARISON: CORRELATION IS MADE WITH JUNE 28, 2020 FINDINGS: The lungs are clear The cardiomediastinal contour is stable The chest port and pacemaker are seen with the median sternotomy sutures IMPRESSION: NO ACUTE PROCESS. Wyatt Cadet MD 09/25/20 0824 Thank you for allowing us to participate in the care of your patient.
== END 2020-09-25 02:01 | disposition short-term general hospital (02) ==
LOC: VM.ED 23:02
DX: R07.89 Other chest pain (principal); C61 Malignant neoplasm of prostate; I25.10 Atherosclerotic heart disease of native coronary artery without angina pectoris; E78.00 Pure hypercholesterolemia, unspecified; J45.909 Unspecified asthma, uncomplicated; E66.9 Obesity, unspecified; Z68.27 Body mass index [BMI] 27.0-27.9, adult; Z92.21 Personal history of antineoplastic chemotherapy; Z88.8 Allergy status to other drugs, medicaments and biological substances; Z79.82 Long term (current) use of aspirin; Z79.899 Other long term (current) drug therapy
CPT/HCPCS: 36415; 71046; 80053; 82150; 83690; 84484; 85025; 86140; 93005; 99284; 99285-25; A9270-GY; J1642

== ENCOUNTER 2020-10-14 16:31 | Observation (INO) | payer MEDICARE, BC ==
[2020-10-14] MEDS ORDERED: Ondansetron 4 MG Tab.DIS PO PRN (16:35)
[2020-10-14] MEDS ORDERED: Ondansetron 4 MG/2 ML SDV IV PRN (16:35)
[2020-10-14] MEDS ORDERED: oxyCODONE 5 MG Tab PO PRN (16:35)
[2020-10-14] MEDS ORDERED: LORazepam 2 MG/ML SDV IVPUSH PRN (16:40)
[2020-10-14] MEDS ORDERED: Flumazenil 0.1 MG/ML 5 ML MDV IVPUSH PRN (16:40)
[2020-10-14] MEDS ORDERED: diphenhydrAMINE 25 MG Cap PO PRN (16:40)
[2020-10-14] MEDS ORDERED: Amoxicillin/Clavulanate K 875-125 MG Tab PO SCH (16:42)
[2020-10-14] MEDS ORDERED: Sodium Chloride 0.9% 1,000 ML IV SCH (16:45)
--- NOTE | 2020-10-14 17:20 | CR ---
[id number] RAD/RAD Chest PA or AP 1V EXAM: SINGLE VIEW CHEST. INDICATION: CHEST PAIN COMPARISON: CORRELATION IS MADE WITH SEPTEMBER 24, 2020 FINDINGS: The lungs are clear The chest port, cardiac surgical changes and pacemaker are seen A calcified granuloma at the left base again is identified IMPRESSION: STABLE CHEST Wyatt Cadet MD 10/14/20 [id number] Thank you for allowing us to participate in the care of your patient.
[2020-10-14] MEDS ORDERED: Acetaminophen 500 MG Tab PO PRN (17:24)
[2020-10-14] MEDS ORDERED: LORazepam 1 MG Tab PO PRN (17:24)
[2020-10-14] MEDS ORDERED: Albuterol HFA 18 Gm Inhaler INH PRN (17:24)
[2020-10-14] MEDS ORDERED: Polyethylene Glycol 3350 Powder 17 GM Packet PO PRN (17:24)
[2020-10-14] MEDS ORDERED: Acetaminophen/HYDROcodone 325-5 MG Tab PO PRN (17:24)
[2020-10-14] MEDS ORDERED: Nitroglycerin 0.4 MG Tab.SL SL PRN (17:24)
[2020-10-14] MEDS ORDERED: Lidocaine/Prilocaine 2.5-2.5% Crm 5 GM Tube TOP SCH (17:30)
[2020-10-14] MEDS ORDERED: Finasteride 5 MG Tab PO SCH (18:00)
[2020-10-14 19:13] LABS: CHLORIDE,CL 102 mmol/L (98-107); SODIUM,NA 138 mmol/L (136-145)
[2020-10-14] MEDS ORDERED: ALBUTEROL INH PRN (19:28)
[2020-10-14 19:33] LABS: ANION GAP 13.3 mmol/L (5-15)
[2020-10-14] MEDS ORDERED: Lidocaine/Prilocaine 2.5-2.5% Crm 5 GM Tube TOP PRN (19:35)
[2020-10-14] MEDS ORDERED: Montelukast 10 MG Tab PO SCH (20:00)
[2020-10-14] MEDS ORDERED: Pramipexole 0.5 MG Tab PO SCH (20:00)
[2020-10-14] MEDS: Lactobacillus Rhamnosus GG (Probiotic) Cap PO SCH (20:51)
[2020-10-14] MEDS: Trospium 20 MG Tab PO SCH (20:51)
--- NOTE | 2020-10-15 00:06 | HP ---
CHIEF COMPLAINT: Eye pain without changes in vision and generalized achiness, dental pain, but no fevers. HISTORY OF PRESENT ILLNESS: This is an 80-year-old male with known history of squamous cell cancer of the prostate, who recently decided to discontinue chemotherapy due to an admission for a [id number] IN, and last fall he had admissions for neutropenic fever. The patient states he had malaria in the service, 106 fever, and he has just never felt like this. He has not had any dental care for a while and had that toothache last night, but that is better today. He admits he is nervous about what is going to happen next. He did not sleep well. He could not nap today and was chilled. The patient has had both COVID vaccines. He has lost about 7 pounds in the last 2 weeks. He at first said no chest pain, then later said yes I had some yesterday if he exerts himself. He admits his memory is getting gradually worse, which his did confirm. The patient has not had any burning with urination, but has had some soreness in his low back. He has had a lot a recurrent UTIs due to needing a suprapubic catheter. He also has a little bit of a headache and admits that he has had lots of trouble with migraines. He also continues to have swelling in his feet. He has taken about 4 Tylenol in 12 hours without much relief. He used to use lorazepam for anxiety in the past so has them on hand, but did not try one. ALLERGIES: The patient's allergies do include statins, isopropyl nicotinate, niacin, and simvastatin. MEDICATIONS: His current medication list includes Ativan 0.5 at bedtime, he has not been taking for quite some time; Toprol 50 mg daily; selenium 200 mg daily; lactobacillus twice daily; fish oil; calcium and D; Proscar 5 mg daily; Sanctura 20 mg b.i.d. for bladder spasms; Lialda 1.2 two pills daily; Singulair 10 mg daily; Crestor 20 mg daily; Mirapex 0.5 in the evening; nitroglycerin as needed; Systane eye drops; EMLA cream; aspirin 81 mg daily; albuterol inhaler; Zofran as needed; clotrimazole cream; ketoconazole cream; MiraLAX as needed; Senokot; hydrocodone as needed; Tylenol, and coenzyme Q10. PAST MEDICAL HISTORY: Includes squamous cell metastatic prostate cancer; pacemaker for AV block; coronary artery disease with stable angina, recently changed over to Toprol after a [id number] IN; carotid artery stenosis with small-vessel cerebrovascular disease with no major stroke; coronary artery disease with CABG; ischemic cardiomyopathy with EF 40% after this recent admit, but not sent home on Lasix; peripheral vascular disease with subclavian artery stenosis; mild persistent asthma; chronic sinusitis; hyperglycemia without diabetes; obesity; anxiety; restless legs syndrome; history of migraines; chronic kidney disease stage 3; BPH, but with suprapubic in place, now with recurrent UTIs including pseudomonas PAST SURGICAL HISTORY: The patient has had prostate surgeries, biopsies, pacemaker, knee arthroscopies, suprapubic catheter, right inguinal hernia, CABG, bronchoscopies. FAMILY HISTORY: Both parents are . SOCIAL HISTORY: The patient is . He is retired. He has a child. Lives at home with his . He is a nonsmoker. REVIEW OF SYSTEMS: General: He has had weight loss. He has felt weak and chilled. HEENT: No trouble swallowing. No sore throat. Cardiac: He has had the chest pain. No shortness of breath. Respiratory: No cough. No wheezing. Abdomen: No abdominal pain. Has felt a little nauseous, but no vomiting. No constipation or diarrhea. All systems reviewed and found to be negative unless otherwise stated. LABORATORY DATA: The patient was also seen at [facility]. His lab work there is pending, but his point of care glucose is 129. COVID testing negative. Chest x-ray did not show any acute findings. UA pending. EKG pending. PHYSICAL EXAMINATION: VITAL SIGNS: Weight 73.8 kg, temp 98.9, pulse 76, blood pressure 165/60, respiratory rate 19, and O2 of 100 on room air. The clinic his blood pressure was actually lower at 138/58. General: He is in no acute distress. HEENT: Eyes, pupils are equal, round, reactive to light. His extraocular motor function is intact. His sclerae are nonicteric, they are not red, and his funduscopic exam did not reveal any hemorrhages. Heart: Regular rate and rhythm with murmur. Lungs: Lung sounds are clear to auscultation bilaterally without crackles or wheezes. Abdomen: Positive bowel sounds. It is soft. Nondistended, nontender. Extremities: Warm and dry. Just trace edema over both feet. Mental Status: Alert and orientated x3. The patient does seem slightly anxious. ASSESSMENT AND PLAN: 1. Dental pain, likely developing abscess. Given patient was recently immunosuppressed from chemotherapies, I am going to give him some oral Augmentin. 2. Anxiety. Given recent health concerns and frustrations. It was discussed that Ativan will be utilized again to help with resting and sleep. He is comfortable with this plan. In fact, he actually tells me he feels much better in the hospital because he feels safer and taken care of. 3. Squamous cell prostate cancer. He is no longer on treatment. He has had platelet transfusion recently, but no blood. He was on lurbinectedin. We will continue to monitor for now. We will place him on Lovenox potentially for deep venous thrombosis prophylaxis, but I would like to review his other lab work to ensure no active bleeding especially since he has had recent hematuria. 4. Recurrent urinary tract infections and suprapubic cath. We will check a urinalysis. He is not having any symptoms though. 5. Eye pain, but no vision changes, possibly a migraine. 6. Coronary artery disease with recent [id number] myocardial infarction. We will continue the Toprol. I will place him on telemetry. We will get his lab work including troponin. The patient would not want to be transferred to [place] just for an elevated troponin, but would want to be transferred for acute cares for stroke. 7. Ulcerative colitis. We will continue his home medications. The patient will be admitted for observation status. We will get his lab work. We will continue his home medications, but hold many vitamins. We will treat him with Augmentin for the dental infection. We will give him Ativan for anxiety. He has hydrocodone available for pain. We will monitor with telemetry. Anticipate if all goes well, he could be discharged home as soon as tomorrow. MKA: 10/14/2020 18:29:35 MODL: 10/14/2020 23:55:39 /[id number] LADAN
[2020-10-15] MEDS: Sodium Chloride 0.9% 10 ML Syringe FLUSH PRN ×2 (06:24→10:47)
[2020-10-15] MEDS ORDERED: atorvaSTATin 40 MG Tab ONE (07:45)
[2020-10-15] MEDS ORDERED: Metoprolol Succinate 50 MG Tab.ER PO SCH (08:00)
[2020-10-15] MEDS ORDERED: Aspirin 81 MG Tab.EC PO SCH (08:00)
[2020-10-15] MEDS ORDERED: ROSUVASTATIN 20 MG PO SCH (08:00)
[2020-10-15] MEDS ORDERED: Amoxicillin/Clavulanate K 875-125 MG Tab PO SCH (08:00)
[2020-10-15] MEDS ORDERED: MESALAMINE 1.2 GM PO SCH (08:00)
[2020-10-15] MEDS ORDERED: Vancomycin 125 MG Cap PO SCH (08:16)
[2020-10-15] MEDS: Lactobacillus Rhamnosus GG (Probiotic) Cap PO SCH (09:01)
[2020-10-15] MEDS: Trospium 20 MG Tab PO SCH (09:02)
[2020-10-15 10:23] VITALS: BP 98/47; PULSE 74
--- NOTE | 2020-10-15 15:16 | PCM.EKG ---
#1 Interpretation EKG Date: 10/14/20 Comparison: No Change EKG Interpretation Comments: EKG was showed a ventricular pacemaker
--- NOTE | 2020-10-15 18:02 | DISCH ---
PRIMARY DISCHARGE DIAGNOSES: 1. Dental infection. 2. Eye pain without vision changes, likely a migraine headache variant. 3. Anxiety due to medical condition. 4. Poor dentition. 5. Known squamous cell prostate cancer which is locally recurrent, but possibly metastatic to the lung. 6. Urethral stricture and urinary retention requiring a suprapubic catheter. 7. History of recurrent urinary tract infections with Pseudomonas. 8. History of Clostridium difficile and ulcerative colitis. 9. Recent vic-FJ-unvowtvlj myocardial infarction with known coronary artery disease. He has not had any further chest pain on his stay. Troponin was negative. 10.Anemia, likely related to recent chemotherapy which the patient states he has finished with. His hemoglobin was 10.3 on his stay. 11.Recent thrombocytopenia, resolved. REASON FOR ADMISSION: On the date of admission, this 80-year-old male came to the clinic. He was just not feeling well. He had been feeling well in the previous day, but then got some dental pain during the night and then he could not sleep, then his eyes started hurting him just like a mild headache. He was quite anxious, but had not tried any of the lorazepam that he has at home. He came to the clinic and was evaluated and decision was made to admit him for observation given his recent non-ST- elevation HI and further workup. All of his lab work looked okay. His troponin was negative. His lactic acid was normal. He was afebrile. His white count was normal. He was started on oral Augmentin. He had taken 4 Tylenol already at home. Therefore, his hydrocodone was switched to oxycodone and he did take 1 for pain which helped. He actually did not require any of his oral or IV Ativan during his stay. He stated he slept well. He is feeling well this morning and is hopeful to return home today. He was also seen by the occupational therapist this morning and he scored a 26 on his mini-mental and a 4.7 on his ACL, so did quite well. There had been some concerns about his memory and forgetting things, but that has been going on for years, but he states made worse by recent chemo. DISCHARGE PLANS AND INSTRUCTIONS: The patient will follow up in the clinic with Dr. Bradford on 10/26/2020 at 3 p.m. He will be on Augmentin 875 twice daily for 6 more days and follow up with the dentist for his dental infection. He will be on vancomycin 125 four times a day for 7 days to prevent recurrent C. diff and he should eat yogurt or take a probiotic 2 times a day for the next 3 weeks as well. He may use the lorazepam he has at home for nervousness or to help sleep at night. Benadryl is also available for when he does not feel well. No lab work is due in the clinic with me and he should stop his fish oil pills. PHYSICAL EXAMINATION: Vital Signs: Discharging exam included a temperature of 99.5, weight 79.3 kg, pulse 85, blood pressure 109/44, respiratory rate 17, and O2 of 95% on room air. I also did give the patient a liter of fluids, but he ate 100% of dinner last night. General: He is in no acute distress. Heart: Regular rate and rhythm with murmur. Lungs: Lung sounds are clear to auscultation bilaterally without crackles or wheezes. Abdomen: Positive bowel sounds. Soft, nondistended, nontender. Extremities: Warm and dry. No edema. Even the edema on the top of his feet have improved. Neck: Supple. There is a little bit of lymphadenopathy on the left side, probably from the dental infection, but there is no abscess. No pain in the cheek. No swelling, just some minor trouble swallowing per the patient, otherwise his throat is clear. Mental Status: Alert and orientated x3. MKA: 10/15/2020 09:54:19 MODL: 10/15/2020 17:53:34 /[id number] MTDD
== END 2020-10-15 11:50 | disposition home or self-care (01) ==
LOC: VM.MS 16:31
PROVIDERS: ADMIT Internal Medicine; ATTEND Internal Medicine
DX: K04.7 Periapical abscess without sinus (principal); I21.4 Non-ST elevation (NSTEMI) myocardial infarction; H57.10 Ocular pain, unspecified eye; F41.9 Anxiety disorder, unspecified; K00.7 Teething syndrome; N35.919 Unspecified urethral stricture, male, unspecified site; R33.9 Retention of urine, unspecified; I25.10 Atherosclerotic heart disease of native coronary artery without angina pectoris; J45.909 Unspecified asthma, uncomplicated; E66.9 Obesity, unspecified; N18.30 Chronic kidney disease, stage 3 unspecified; K51.90 Ulcerative colitis, unspecified, without complications; Z20.822 Contact with and (suspected) exposure to COVID-19; Z88.8 Allergy status to other drugs, medicaments and biological substances; Z95.0 Presence of cardiac pacemaker; Z98.890 Other specified postprocedural states
CPT/HCPCS: 36415; 71045; 80053; 81001; 82962; 83605; 84484; 85025; 87040; 87086; 87088; 87186; 93005; 97165-GO; A9270-GY; G0378; J1642; J7030; U0002

== ENCOUNTER 2020-12-28 10:33 | Inpatient (IN) | payer MEDICARE, BC ==
[2020-12-28] MEDS ORDERED: Sodium Chloride 0.9% 10 ML Syringe FLUSH PRN (12:09)
[2020-12-28] MEDS ORDERED: Nitroglycerin 0.4 MG Tab.SL SL PRN (12:14)
[2020-12-28] MEDS ORDERED: Ketoconazole [Nizoral 2% Crm] 15 GM Tube (OWN SUPPLY) TOP PRN (12:14)
[2020-12-28] MEDS ORDERED: Miconazole 2% Top Powder 45 GM Container TOP PRN (12:14)
[2020-12-28] MEDS ORDERED: Lidocaine/Prilocaine 2.5-2.5% Crm 5 GM Tube TOP PRN (12:14)
[2020-12-28] MEDS ORDERED: diphenhydrAMINE 25 MG Cap PO PRN (12:14)
[2020-12-28] MEDS ORDERED: Polyethylene Glycol 3350 Powder 17 GM Packet PO PRN (12:14)
[2020-12-28] MEDS ORDERED: Albuterol HFA 18 Gm Inhaler INH PRN (12:20)
[2020-12-28] MEDS ORDERED: Ondansetron 4 MG Tab.DIS PO PRN (12:26)
[2020-12-28] MEDS ORDERED: Hypromellose 0.3% Ophth Soln 15 ML Bottle EYEBOTH PRN (12:27)
[2020-12-28] MEDS: cefTRIAXone 1 GM Vial IVPUSH SCH (12:48)
[2020-12-28] MEDS: Sodium Chloride 0.9% 1,000 ML IV SCH ×2 (13:07→19:39)
[2020-12-28] MEDS: Ciprofloxacin 250 MG Tab PO SCH ×2 (13:28→17:33)
[2020-12-28] MEDS: Acetaminophen 325 MG Tab PO PRN ×2 (14:02→21:54)
[2020-12-28] MEDS: Heparin Sodium 5,000 Units/ML Vial SUBCUT SCH (16:15)
[2020-12-28] MEDS: Finasteride 5 MG Tab PO SCH (17:33)
[2020-12-28] MEDS: Pramipexole 0.5 MG Tab PO SCH (19:40)
[2020-12-28] MEDS: Vancomycin 125 MG Cap PO SCH (19:40)
[2020-12-28] MEDS: Lactobacillus Rhamnosus GG (Probiotic) Cap PO SCH (19:40)
[2020-12-28] MEDS: Trospium 20 MG Tab PO SCH (19:41)
[2020-12-28] MEDS: Montelukast 10 MG Tab PO SCH (19:41)
[2020-12-28] MEDS: LORazepam 1 MG Tab PO PRN (21:52)
[2020-12-29] MEDS: Heparin Sodium 5,000 Units/ML Vial SUBCUT SCH ×3 (00:14→17:21)
[2020-12-29] MEDS: Acetaminophen 325 MG Tab PO PRN ×4 (02:17→21:53)
[2020-12-29] MEDS: Sodium Chloride 0.9% 1,000 ML IV SCH ×3 (02:19→16:11)
--- NOTE | 2020-12-29 05:38 | HP ---
CHIEF COMPLAINT: Renal failure. HISTORY OF PRESENT ILLNESS: This is an 80-year-old male with squamous cell prostate cancer, who is not currently on any chemotherapy treatments, but has a suprapubic catheter, which was last changed on 11/30, and then he was having some discomfort, so urine culture at that time grew Citrobacter, but only 20,000. He was treated with Macrobid. He never had any fever or chills. He comes in today with concerns that he is having another bladder infection due to discomfort down there and some kidney pain in the back, but not necessarily bad back pain or high fevers. He was having some burning into the catheter. No blood. 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 Lab work was done showing that indeed he continues to have a bladder infection. His white count though was normal. His hemoglobin was stable at 9.3, his platelets were 148, but his creatinine which was normally in the 1 range was up to 2.6. He admits he has not been eating well, but he has been trying to drink water. He is on lisinopril for heart failure and he is good about taking that at night, but he has not been very good about taking his Toprol. He has felt a little short of breath, but had no fluid retention. He has not had any chest pain, but has previously been admitted with a [id number], it is on medical management. EF in 09/2020 was 40% and he had been doctoring with the heart failure clinic and had actually had some episodes where he had low blood pressures due to over medication, but blood pressure was fine in the clinic. ALLERGIES: Include statin drugs; atorvastatin, niacin, simvastatin, and isopropyl causes body aches. MEDICATIONS: His medication list was reviewed. His lisinopril was just 2.5 mg daily; he is on fish oil 4000 daily; Toprol 25 mg daily; Ativan 1 mg 3 times a day as needed for anxiety; Benadryl as needed for anxiety; selenium 200 daily; lactobacillus 100,000 two times a day. PAST MEDICAL HISTORY: He has history of C. diff in the past. He has ulcerative colitis, but is not currently having any diarrhea. He does have a known history of coronary artery disease. He has ischemic cardiomyopathy, but is not currently on any Lasix for heart failure. He has recurrent yeast infections in his groin. 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 He has anxiety. He has chronic small vessel changes in his brain with carotid artery stenosis and peripheral vascular disease. Chronic kidney disease stage 3, with his baseline creatinine really around 1.3 recently. He has had a previous pelvic fracture, GERD, hyperglycemia without diabetes, mild cognitive impairment, about in 2020. Mild persistent asthma, obesity, sleep apnea, thrombocytopenia in the past due to treatments. PAST SURGICAL HISTORY: Surgically, the patient has had endoscopies, prostate biopsy, pacemaker placement, knee arthroscopy on the left, suprapubic catheter placement, right inguinal hernia, CABG surgery for bypass, bronchoscopies for pill removal in the past. SOCIAL HISTORY: The patient is , retired, lives at home with his . He has 1 child. He is not currently smoking. Denies any excessive alcohol use. FAMILY HISTORY: Both parents are . His mother had colon cancer and rheumatologic conditions, and a sister had diabetes. REVIEW OF SYSTEMS: General: The patient has lost some weight. He is down approximately 7 pounds from 3 months ago. He has not had any fever or chills. HEENT: No sore throat. No trouble swallowing. Cardiac: No chest pain. No palpitations. Respiratory: No cough, but he has been a little short of breath. Abdomen: No nausea, vomiting, diarrhea. : As stated in the HPI. Musculoskeletal: He has not had any edema. No new leg aches or pains. Mental Status: No confusion. No increasing anxiety. PHYSICAL EXAMINATION: On physical exam at the hospital, he was also seen and examined there. Vital Signs: Weight was 70 kg, temp 98.5, pulse 62, blood pressure 127/46, respiratory rate 19, and O2 100% on room air. In the clinic, his blood pressure was just 98/38. General: He is in no acute distress. Heart: Irregular rate and rhythm. S1, S2, with murmur noted. Lungs: Lung sounds are clear to auscultation bilaterally without crackles or wheezes. Abdomen: Has positive bowel sounds. Soft, nondistended, nontender. Suprapubic in place with clear urine drainage. Mental Status: Alert and orientated x3. Extremities: No edema. Skin: Turgor is good. His oral mucosa are not overly dry. ASSESSMENT AND PLAN: 1. Acute renal failure, probably due to some volume depletion and dehydration with being out in the hot weather and not feeling well. 2. Complicated urinary tract infection with history of Pseudomonas and a suprapubic catheter, failing outpatient treatments. 3. Coronary artery disease and known ischemic cardiomyopathy, EF of 40%, at risk for heart failure. 4. Squamous cell prostate cancer, currently off treatments, recurrent, with a mass in the lung, possibly metastatic. He has been under monitoring, but no treatments planned currently. 5. Urinary retention, suprapubic in place. He also has a urethral stricture. 6. History of Clostridium difficile in the past, with antibiotics. He also has ulcerative colitis. We will give him empiric vancomycin. 7. Anemia due to myelosuppression from previous chemotherapy and then also from chronic diseases. 8. Peripheral vascular disease. The patient will be admitted for acute cares with IV fluids. He already had a CT in November of his abdomen, which did not show any concern for metastatic disease, but I did not see a chest CT. If he is not improving with his renal function, we will have to do another CT, although his suprapubic is currently draining appropriately. I will treat him with some IV Rocephin and oral Cipro. We will get a COVID test. We will continue his home medications with the exception of holding the lisinopril due to the acute renal failure and mild hyperkalemia. We will put him on heparin for DVT prophylaxis. The patient is a code level 3, no CPR. We will see how he is doing. Anticipate he could be discharged in the next couple of days. I do not think he will have any therapy needs. He will continue on his Proscar and bladder medications. We will send the urine for culture through the clinic. KIARA: 12/28/2020 18:15:15 MODL: 12/29/2020 05:32:09 /[id number]
[2020-12-29] MEDS: Ciprofloxacin 250 MG Tab PO SCH ×2 (06:44→17:21)
[2020-12-29] MEDS: Vancomycin 125 MG Cap PO SCH ×4 (07:43→19:49)
[2020-12-29] MEDS: cefTRIAXone 1 GM Vial IVPUSH SCH (07:43)
[2020-12-29] MEDS: Trospium 20 MG Tab PO SCH ×2 (07:43→19:49)
[2020-12-29] MEDS: Lactobacillus Rhamnosus GG (Probiotic) Cap PO SCH ×2 (07:43→19:49)
[2020-12-29] MEDS: Aspirin 81 MG Tab.EC PO SCH (07:43)
[2020-12-29] MEDS: Metoprolol Succinate 25 MG Tab.ER PO SCH (07:44)
--- NOTE | 2020-12-29 09:11 | PN ---
Progress Note for DAYLIN JAIMES Date: 12/29/2020 Room #: VM.212 SUBJECTIVE: This is hospital day #2 on an 80-year-old admitted with a complicated UTI and renal failure. The patient has been getting IV fluids. He is feeling better. He is not lightheaded or dizzy. His back pain from his bladder has improved. He does not have any lower abdominal discomfort. He has not yet had a bowel movement. He did have 1.2 L of urine output, but had 3 L in. He is not having any cough. No shortness of breath. He has had a poor appetite, but he ate 100% of his breakfast this morning. Catheter is draining adequately. OBJECTIVE: Vital Signs: Temp is 97.7, pulse 60, blood pressure 128/43, respiratory rate 16, O2 of 98% on room air. General: He is in no acute distress. Heart: Regular rate and rhythm with murmur. Lungs: Sounds are clear to auscultation bilaterally without crackles or wheezes. Abdomen: Positive bowel sounds. Soft, nontender. Suprapubic in place. Urine is clear. Extremities: Warm and dry. No edema. He does have some thickened nails. We examined his left foot because he has had some burning in the toes, numbness that comes and goes over the last 2 months only on the left side. It has actually gone this morning. Mental Status: Otherwise, mental status alert and orientated x3. LABORATORY DATA: Lab work does show his white count at 4.1, hemoglobin down to 8.3, platelets 123. Sodium 139, potassium 5, chloride 108, bicarb 23, BUN 32, creatinine 2, glucose 95, calcium 8.2. ASSESSMENT AND PLAN: 1. Acute on chronic renal failure due to volume depletion and dehydration. We will continue with normal saline 150 an hour and repeat lab work tomorrow. 2. His anemia probably due to some hemodilution. He has also chronic anemia. No signs of bleeding. We will repeat tomorrow. 3. Complicated urinary tract infection. He will continue IV Rocephin and oral Cipro. Awaiting culture. 4. Coronary artery disease with ischemic cardiomyopathy, stable. He is at risk for heart failure but no current symptoms. 5. Squamous cell prostate cancer. There was no local progression, but discussed with the patient if numbness and discomfort in the toes continues, he will need further imaging, like a back MRI, also considering outpatient ABIs given his history of peripheral vascular disease. It is better now, so we will just monitor. 6. Urinary retention. Catheter in place chronically. 7. History of Clostridium difficile. He is on Vanco prophylactically. 8. Anemia. 9. Deep vein thrombosis prophylaxis, on heparin. PLAN: The patient will continue acute cares with IV fluids and IV antibiotics. We will await urine culture. We will give him oral Cipro as the absorption is quite good on that. He is eating better today. He is a code level 3. He does not need any further imaging. Currently, he will continue on his Proscar another bladder medication and hopefully be discharged home on oral antibiotics tomorrow. We will repeat labs. MKA: 12/29/2020 08:44:53 MODL: 12/29/2020 08:59:10 /[id number]
[2020-12-29] MEDS: MESALAMINE 1.2 GM PO SCH (13:06)
[2020-12-29] MEDS: ROSUVASTATIN 20 MG PO SCH (13:06)
[2020-12-29] MEDS: Finasteride 5 MG Tab PO SCH (17:21)
[2020-12-29] MEDS: Montelukast 10 MG Tab PO SCH (19:49)
[2020-12-29] MEDS: Pramipexole 0.5 MG Tab PO SCH (19:49)
[2020-12-29] MEDS: LORazepam 1 MG Tab PO PRN (21:54)
[2020-12-30] MEDS: Heparin Sodium 5,000 Units/ML Vial SUBCUT SCH ×2 (00:24→07:38)
[2020-12-30 05:13] VITALS: BP 135/47; PULSE 61
[2020-12-30] MEDS: Ciprofloxacin 250 MG Tab PO SCH (06:15)
[2020-12-30] MEDS: cefTRIAXone 1 GM Vial IVPUSH SCH (07:36)
[2020-12-30] MEDS: ROSUVASTATIN 20 MG PO SCH (07:37)
[2020-12-30] MEDS: Lactobacillus Rhamnosus GG (Probiotic) Cap PO SCH (07:38)
[2020-12-30] MEDS: Aspirin 81 MG Tab.EC PO SCH (07:38)
[2020-12-30] MEDS: Trospium 20 MG Tab PO SCH (07:40)
[2020-12-30] MEDS: Metoprolol Succinate 25 MG Tab.ER PO SCH (07:40)
[2020-12-30] MEDS: Vancomycin 125 MG Cap PO SCH (07:41)
[2020-12-30] MEDS: MESALAMINE 1.2 GM PO SCH (07:43)
--- NOTE | 2020-12-30 21:10 | DISCH ---
PRIMARY DISCHARGE DIAGNOSES: 1. Acute on chronic renal failure, likely due to volume depletion and dehydration with recent urinary tract infection. Baseline creatinine has been between 1 and 1.5 over the last few months. Last checked in November at 1.38. He also had a CT on 12/07 for his cancer, but it was reported to be without contrast. 2. Urinary retention due to squamous cell cancer of the prostate and stricture, suprapubic in place and draining well. 3. Complicated urinary tract infection due to Citrobacter in November, failing outpatient Macrobid, but also with a history of Pseudomonas and Serratia previously. The clinic culture has not been finalized. 4. Ulcerative colitis. He is not having any diarrhea. 5. Anemia. He is not currently on any chemotherapy. His hemoglobin stable. 6. Obesity. 7. Mild cognitive impairment. The patient did get poor sleep last night, which seems to make things worse. He also has been worsened by his urinary tract infection and anxiety. He was 26/30 on his mini-mental exam this spring. 8. Mild persistent asthma, stable without exacerbation. 9. Coronary artery disease without chest pain. 10.Chronic systolic heart failure with ejection fraction of 40%. He is on medical management, but the lisinopril likely contributed to his hyperkalemia and renal failure. 11.History of Clostridium difficile. He will be on vancomycin prophylactically. 12.Deep vein thrombosis prophylaxis. He did get heparin. REASON FOR ADMISSION: On the date of admission, this 80-year-old male came into the clinic not feeling well, worse over the last 36 hours, but really feeling like his bladder infection that he had in November treated with Macrobid had not resolved. He was having some low back and flank pain, but this also resolved. He was found to have a creatinine up to 2.6. He admitted he had been working out in the warmer weather, not eating that well, but trying to drink enough. Decision was made to hold his lisinopril and admit the patient to hospital for IV rehydration given his heart failure, and in fact he did receive IV fluids over the next 48 hours with an improvement in his creatinine down to 2 yesterday and 1.7 today. Hemoglobin was monitored and remained stable. It was at 9.1 today. His platelets were normal at 134. His white count was normal at 4.7. He did receive IV Rocephin and oral Cipro for the UTI, tolerated that without fevers and was feeling better. CK level was also checked and was negative. He had a total intake of 5 L, but excellent urine output over 3 L. PHYSICAL EXAMINATION: Discharge Vitals: Temp 98.4, pulse 61, blood pressure 135/47, respiratory rate 16, and O2 of 100% on room air. General: He is in no acute distress. Heart: Regular rate and rhythm with murmur. Lungs: Lung sounds are clear to auscultation bilaterally without crackles or wheezes. Abdomen: Nondistended. Positive bowel sounds. Nontender. Extremities: Warm and dry. No edema. Suprapubic catheter is in place with no surrounding redness or drainage, just some dried blood in the area. Mental Status: He is alert and oriented x3. LABORATORY WORK: As discussed in the HPI shows improving renal function with GFR at 39. COVID testing was negative on admission. DISCHARGE PLANS AND INSTRUCTIONS: He will follow up in the clinic with Dr. Bradford later this month. He will be off lisinopril, but will be taking his Toprol daily instead. His had admitted he had missed some doses on this. He will continue to follow with Oncology. His followup imaging was for his prostate cancer, but it had not showed any local progression. He is off chemo. He will avoid Advil and Motrin. He will avoid dehydration. He should rest and relax today before resuming regular activities. He will be on vancomycin twice daily also for 1 week to prevent C diff and the Cipro 250 twice daily for 1 week as well as he is due for his next catheter change suprapubic on 01/04. He does seem to get some infections after these exchanges, so I wanted to continue therapy through that next change. MKA: 12/30/2020 11:32:28 MODL: 12/30/2020 21:03:54 /[id number] LADAN
== END 2020-12-30 09:25 | disposition home or self-care (01) | DRG 683 ==
LOC: VM.MS 10:33
PROVIDERS: ADMIT Internal Medicine; ATTEND Internal Medicine
DX: N17.9 Acute kidney failure, unspecified (principal); K51.90 Ulcerative colitis, unspecified, without complications; I50.22 Chronic systolic (congestive) heart failure; E86.0 Dehydration; E86.9 Volume depletion, unspecified; C61 Malignant neoplasm of prostate; R33.8 Other retention of urine; J45.30 Mild persistent asthma, uncomplicated; Z20.822 Contact with and (suspected) exposure to COVID-19; I25.10 Atherosclerotic heart disease of native coronary artery without angina pectoris; E66.9 Obesity, unspecified; D63.1 Anemia in chronic kidney disease; F41.9 Anxiety disorder, unspecified; N18.30 Chronic kidney disease, stage 3 unspecified; K21.9 Gastro-esophageal reflux disease without esophagitis; G47.30 Sleep apnea, unspecified; D69.6 Thrombocytopenia, unspecified; N35.919 Unspecified urethral stricture, male, unspecified site; I73.9 Peripheral vascular disease, unspecified; E87.5 Hyperkalemia; I25.5 Ischemic cardiomyopathy; Z88.8 Allergy status to other drugs, medicaments and biological substances; Z88.1 Allergy status to other antibiotic agents; Z79.899 Other long term (current) drug therapy; I25.2 Old myocardial infarction
CPT/HCPCS: 36415; 80048; 80069; 82550; 85025; A9270-GY; J0696; J1644; J7030; U0002

== ENCOUNTER 2021-04-28 02:35 | Emergency (ER) | payer OTHER, MEDICARE, BC ==
--- NOTE | 2021-04-28 03:02 | EDM.PDOC ---
ED HPI GENERAL MEDICAL PROBLEM - General Chief Complaint: Chest Pain Stated Complaint: Chest pain Time Seen by Provider: 04/28/21 02:37 Source of Information: Reports: Patient, EMS History Limitations: Reports: No Limitations - History of Present Illness INITIAL COMMENTS - FREE TEXT/NARRATIVE: Govind is an 81 year old male who presents to ER with complaints of chest pain. Was sitting up at playing on his computer as has trouble sleeping when started noting a burning, pressure sensation across his chest. Did feel short of breath with this. Lasted about 30 minutes, pain is now gone. EMS did give him one nitro and 4 baby ASA. Denies diaphoresis. No nausea or vomiting. Has some swelling in his legs, no changes with this. Appetite has been good. Has been feeling good. Did get chemo on Sunday. Has history of prostate cancer. States has had 3 different times where he has had chemo, started again about a month ago. Relates last year, on his last round of chemo, got very exhausted and wore down and was in the hospital for 7 days. Has history of UT in September of this year. Onset: Today, Sudden Duration: Minutes:, Resolved Prior to Arrival Location: Reports: Chest Quality: Reports: Ache Severity: Moderate Improves with: Reports: Medication Associated Symptoms: Reports: Chest Pain, Shortness of Breath. 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, Nitroglycerin, See EMS Report - Related Data Allergies Allergy/AdvReac Type Severity Reaction Status Date / Time atorvastatin AdvReac Other Verified 12/28/20 11:38 niacin AdvReac Body Aches Verified 12/28/20 11:36 simvastatin [From Zocor] AdvReac Muscle Verified 12/28/20 11:36 Aches Abivbyo-Fpm-Bfi Reductase AdvReac Other Verified 12/28/20 11:45 Inhibitor isopropal nicotinate AdvReac Body Aches Uncoded 12/28/20 11:48 Home Meds: Home Meds Albuterol Sulfate [Albuterol Sulfate HFA] 1 puff PO Q4H PRN 10/11/14 [History] Mesalamine [Lialda] 2.4 gram PO DAILY 10/11/14 [History] Montelukast Sodium [Singulair] 10 mg PO BEDTIME 10/11/14 [History] Nitroglycerin [Nitrostat] 0.4 mg SL ASDIRECTED PRN 10/11/14 [History] Pramipexole Di-HCl [Mirapex] 0.5 mg PO BEDTIME 10/11/14 [History] Rosuvastatin [Crestor] 20 mg PO DAILY 10/11/14 [History] Ubidecarenone [Co Q-10] 75 mg PO DAILY 08/04/17 [History] Finasteride [Proscar] 5 mg PO DAILY@1800 06/14/20 [History] Lidocaine/Prilocaine [EMLA Crm] 1 applic TOP ASDIRECTED PRN 06/14/20 [History] Ondansetron [Zofran] 8 mg PO TID PRN 06/14/20 [History] Propylene Glycol/PEG 400/Pf [Systane 0.3-0.4% Eye Drop] 1 drop EYEBOTH Q4HR PRN 06/14/20 [History] Sennosides/Docusate Sodium [Senna Plus 8.6-50 mg Softgel] 2 tab PO BEDTIME PRN 06/14/20 [History] Trospium [Sanctura] 20 mg PO BID 06/14/20 [History] polyethylene glycoL 3350 [MiraLAX] 17 gm PO DAILY PRN 06/14/20 [History] Acetaminophen 1,000 mg PO Q6H PRN 10/14/20 [History] Aspirin [Aspirin EC] 81 mg PO DAILY 10/14/20 [History] Calcium Carbonate/Vitamin D3 [Calcium 600-Vit D3 200 Tablet] 2 tab PO BID 10/14/20 [History] Ketoconazole [Nizoral 2% Crm] 1 applic TOP BID PRN 10/14/20 [History] L. Acidophilus/L.bulgaricus [Lactobacillus Tablet] 1 tab PO BID 10/14/20 [History] LORazepam [Ativan] 1 mg PO TID PRN 10/14/20 [History] Selenium 200 mcg PO DAILY 10/14/20 [History] Metoprolol Succinate [Toprol XL] 25 mg PO DAILY 12/28/20 [History] Miconazole Nitrate [Desenex] 1 applic TOP BID PRN 12/28/20 [History] diphenhydrAMINE [Benadryl] 25 mg PO DAILY PRN 12/28/20 [History] Ciprofloxacin [Ciprofloxacin HCl] 250 mg PO BIDAC #14 tablet 12/30/20 [Rx] Vancomycin [Vancocin 125 MG Capsule] 125 mg PO BID #14 cap 12/30/20 [Rx] Past Medical History HEENT History: Reports: Otitis Media, Sinusitis, Other (See Below) Other HEENT History: awaiting ear doctor appt.--tube came out and is effecting hearing, pt. has to keep an ear plug in or he hears his heartbeat while trying to sleep and it keeps him from sleeping. Cardiovascular History: Reports: Bypass, CAD, High Cholesterol, Pacemaker, Other (See Below) Other Cardiovascular History: cerebralvascular small vessel disease. AV block. carotid artery stenosis Respiratory History: Reports: Asthma, Sleep Apnea Gastrointestinal History: Reports: GERD, Other (See Below) Other Gastrointestinal History: benign neoplasm of colon. ulcerative colitis Genitourinary History: Reports: Prostate Disorder, Renal Calculus Musculoskeletal History: Reports: Other (See Below) Other Musculoskeletal History: bilateral sacroiliac joints. closed pelvic fracture. R. 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 Denies: Fever, Chills, Malaise, Weakness HEENT: Denies: Ear Pain, Rhinitis, Sinus Problem, Throat Pain Respiratory: Reports: Shortness of Breath. Denies: Cough Cardiovascular: Reports: Chest Pain, Edema. Denies: Lightheadedness Endocrine: Reports: Fatigue GI/Abdominal: Denies: Abdominal Pain, Constipation, Diarrhea, Nausea, Vomiting : Reports: No Symptoms Musculoskeletal: Reports: No Symptoms Skin: Reports: Pallor Neurological: Reports: Weakness ED EXAM, GENERAL - Physical Exam Exam: See Below Exam Limited By: No Limitations General Appearance: Alert, WD/WN, No Apparent Distress Ears: Normal External Exam, Normal TMs Nose: Normal Inspection, Normal Mucosa, No Blood Throat/Mouth: Normal Inspection, Normal Oropharynx Head: Normocephalic Neck: Normal Inspection, Supple, Non-Tender Respiratory/Chest: No Respiratory Distress, Lungs Clear, Normal Breath Sounds Cardiovascular: Regular Rate, Rhythm GI/Abdominal: Normal Bowel Sounds, Soft, Non-Tender Extremities: Normal Inspection, Pedal Edema (1-2+ RLE, 1+ LLE) Neurological: Alert, Oriented Skin Exam: Warm, Dry #1 Interpretation EKG Date: 04/28/21 Rhythm: Other (paced rhythm) [place]: Normal QRS: Wide Comparison: No Change Course - Orders/Labs/Meds Orders: Active Orders 24 hr Category Date Time Status Chest 2V [CR] Stat Exams 04/28/21 02:55 Ordered Labs: Laboratory Tests 04/28/21 04/28/21 Range/Units 02:55 02:55 WBC 5.3 (4.0-10.0) x10^3/uL RBC 2.67 L (4.5-6.0) x10^6/uL Hgb 9.1 L (14.0-18.0) g/dL Hct 26.1 L (40.0-52.0) % MCV 97.8 H (78.0-93.0) fL MCH 34.1 H (26.0-32.0) pg MCHC 34.9 (32.0-36.0) g/dL RDW Coeff of Xochilt 12.2 (10.0-15.0) % Plt Count 129 L (130-400) x10^3/uL Add Manual Diff Yes Neutrophils % (Manual) 93 H (50-80) % Band Neutrophils % 1 (0-6) % Lymphocytes % (Manual) 6 L (25-50) % Absolute Neutrophils 5.0 (1.8-7.7) x10^3/uL Lymphocytes # (Manual) 0.3 L (1.0-4.8) x10^3/uL Platelet Estimate Adequate Sodium 140 (136-145) mmol/L Potassium 4.2 (3.5-5.1) mmol/L Chloride 107 (98-107) mmol/L Carbon Dioxide 21 (21-32) mmol/L Anion Gap 16.2 H (5-15) mmol/L BUN 26 H (7-18) mg/dL Creatinine 1.3 (0.70-1.30) mg/dL Est Cr Clr Drug Dosing TNP Estimated GFR (MDRD) 53 Glucose 159 H (70-99) mg/dL Calcium 8.2 L (8.5-10.1) mg/dL Corrected Calcium 8.6 (8.5-10.1) mg/dL Total Bilirubin 0.4 (0.2-1.0) mg/dL AST 20 (15-37) U/L ALT 21 (16-63) U/L Alkaline Phosphatase 80 (46-116) U/L Lactate Dehydrogenase 158 (85-227) U/L Creatine Kinase 44 (39-308) U/L Troponin I High Sens 22 (<=76) ng/L C-Reactive Protein < 0.2 (<=0.9) mg/dL NT-Pro-B Natriuret Pep 1716 H (<=450) pg/mL Total Protein 7.2 (6.4-8.2) g/dL Albumin 3.5 (3.4-5.0) g/dL Globulin 3.7 Albumin/Globulin Ratio 0.95 - Re-Assessments/Exams Free Text/Narrative Re-Assessment/Exam: 04/28/21 03:43 Labs reviewed. Hemoglobin is low at 9.1, chronically been this way for some time. Troponin negative. ProBNP is elevated at 1716. Other labs unremarkable. Discussed with patient. Will start Lasix 20 mg daily until further eval with Dr. Bradford. Departure - Departure Time of Disposition: 03:46 Disposition: Home, Self-Care 01 Condition: Good Clinical Impression: Chest pain, Atypical chest pain, CHF (congestive heart failure), NYHA class I Instructions: Heart Failure Medicines, Angina, [id number] Forms: ED Department Discharge Additional Instructions: 1. Elevate legs 2. Compression stockings if needed for persistent edema 3. Lasix 20 mg daily until further evaluation for need by Dr. Bradford 4. Decrease salt intake 5. Follow up if any recurring chest pain or see Dr. Bradford in clinic as previously scheduled. - My Orders Last 24 Hours: My Active Orders 04/28/21 02:55 Chest 2V [CR] Stat - Assessment/Plan Last 24 Hours: My Active Orders 04/28/21 02:55 Chest 2V [CR] Stat
[2021-04-28 03:26] LABS: CHLORIDE,CL 107 mmol/L (98-107); SODIUM,NA 140 mmol/L (136-145)
[2021-04-28 03:27] LABS: ANION GAP 16.2 mmol/L (5-15)
[2021-04-28] MEDS ORDERED: Furosemide 20 MG Tab PO ONE (03:43)
[2021-04-28 04:22] VITALS: BP 111/62; PULSE 86
--- NOTE | 2021-04-28 07:45 | CR ---
[id number] RAD/RAD Chest PA And Lateral EXAM: RAD Chest PA And Lateral CLINICAL DATA: CHEST PAIN COMPARISON: CORRELATION IS MADE WITH OCTOBER 14, 2020 FINDINGS: The lungs are clear. The cardiomediastinal contour is stable Median sternotomy sutures, a chest port, and pacemaker are seen IMPRESSION: NO ACUTE PROCESS. Wyatt Cadet MD 04/28/21 0744 Thank you for allowing us to participate in the care of your patient.
== END 2021-04-28 04:05 | disposition home or self-care (01) ==
LOC: VM.ED 02:35
DX: I50.9 Heart failure, unspecified (principal); I25.10 Atherosclerotic heart disease of native coronary artery without angina pectoris; E78.00 Pure hypercholesterolemia, unspecified; J45.909 Unspecified asthma, uncomplicated; K21.9 Gastro-esophageal reflux disease without esophagitis; Z95.0 Presence of cardiac pacemaker; Z88.1 Allergy status to other antibiotic agents; Z88.8 Allergy status to other drugs, medicaments and biological substances; Z79.899 Other long term (current) drug therapy; Z79.82 Long term (current) use of aspirin
CPT/HCPCS: 36415; 71046; 80053; 82550; 83615; 83880; 84484; 85025; 86140; 93005; 99285; A9270; 93010; 99284

== ENCOUNTER 2021-06-15 16:58 | Emergency (ER) | payer OTHER, MEDICARE, BC | END 2021-06-15 17:10 | disposition left against medical advice (07) | LOC: VM.ED 16:58 | DX: Z53.21 Procedure and treatment not carried out due to patient leaving prior to being seen by health care provider (principal) ==

== ENCOUNTER 2021-06-28 13:09 | Inpatient (IN) | payer MEDICARE, BC ==
[2021-06-28] MEDS ORDERED: Acetaminophen 500 MG Tab PO PRN (16:14)
[2021-06-28] MEDS ORDERED: Polyethylene Glycol 3350 Powder 17 GM Packet PO PRN (16:29)
[2021-06-28] MEDS ORDERED: Nitroglycerin 0.4 MG Tab.SL SL PRN (16:29)
[2021-06-28] MEDS ORDERED: LORazepam 1 MG Tab PO PRN (16:29)
[2021-06-28] MEDS ORDERED: Furosemide 20 MG Tab PO PRN (16:29)
[2021-06-28] MEDS ORDERED: Lidocaine/Prilocaine 2.5-2.5% Crm 5 GM Tube TOP PRN (16:29)
[2021-06-28] MEDS ORDERED: Simethicone 80 MG Tab.Chew PO PRN (16:29)
[2021-06-28] MEDS ORDERED: Ondansetron 4 MG Tab.DIS PO PRN (16:29)
[2021-06-28] MEDS ORDERED: Omeprazole 20 MG Cap.CR PO PRN (16:29)
[2021-06-28] MEDS: Finasteride 5 MG Tab PO SCH (17:45)
[2021-06-28] MEDS: Montelukast 10 MG Tab PO SCH (20:10)
[2021-06-28] MEDS: Lactobacillus Rhamnosus GG (Probiotic) Cap PO SCH (20:10)
[2021-06-28] MEDS: QUEtiapine 25 MG Tab PO SCH (20:11)
[2021-06-28] MEDS: Pramipexole 0.5 MG Tab PO SCH (20:13)
[2021-06-28] MEDS: Miconazole 2% Top Powder 45 GM Container TOP SCH (20:14)
[2021-06-28] MEDS: Calcium Carbonate/Vitamin D3 1250 MG-5 MCG Tab PO SCH (20:14)
[2021-06-28] MEDS: Trospium 20 MG Tab PO SCH (20:14)
--- NOTE | 2021-06-28 21:16 | HP ---
CHIEF COMPLAINT: Confusion and deconditioning after an acute stay for pneumonia and complicated urinary tract infection with a sepsis after chemotherapy. HISTORY OF PRESENT ILLNESS: This is an 81-year-old male, well known to me. He has squamous cell prostate cancer and had been on chemotherapy treatments. He subsequently was having fever, so his took him to [place] for evaluation and he ended up being admitted. He was treated for a left lower lobe pneumonia with IV antibiotics including cefepime, vancomycin and azithromycin, and his fever resolved. He had some low blood pressure, so he got 1.5 liters of fluid. His urine culture did grow a Proteus and Alcaligenes. He does have a suprapubic catheter due to urinary retention from this squamous cell prostate cancer. He had an acute kidney injury. His creatinine was 1.5 on discharge today. It had been as good as 1.29 in April. He was admitted from 06/19 through 06/28. He has no chest pain currently, no shortness of breath, but did have a bump in his troponin. It was felt to be a non-ST elevation myocardial infarction due to his acute illness. He also had acute blood loss with his anemia of chronic disease, but he has had no ongoing bleeding and he did get 2 units of packed red blood cells. His discharging hemoglobin was an 8.8 today. His pancytopenia was also felt to be due to chemotherapy and he had a chronic systolic heart failure, but not having an acute exacerbation. His last ejection fraction was on 06/20 while in [place] and was 50%. The patient also became more confused and like agitated during his stay. He got started on Seroquel. He had a WanderGuard and he became very upset with us when his alarm went off. He was seen by the nurses and myself you know up with his walker. It was felt that he did not need the bed alarm as this was only leading to his agitation and he does have some concern for memory loss at baseline and anxiety and delirium was one of his discharging diagnoses. He is supposed to avoid narcotics. He is not using any pain pills. He also was having diarrhea, so they stopped all his laxatives. He tells me now he has not had a bowel movement in 2 days, but he does remember them stopping laxatives, but he says he has not really eaten in 3 days, he has not slept well, and does feel that he will improve once he gets some rest. He is happy to be in [place]. He does not want to leave his room. He is not combative or anything like that. The patient also does have underlying ulcerative colitis. ALLERGIES: His allergy list includes atorvastatin, all statins really; isopropyl nicotinate, body aches; niacin, aches; simvastatin, muscle aches. MEDICATIONS: His medication list was reviewed. It is actually quite extensive and it is all listed in his chart. Briefly, I will say, his Lasix is p.r.n. His Seroquel is 12.5 b.i.d. that is new. He has completed all his antibiotics while in [place]. He is on probiotics. He is on Ativan p.r.n. that is not a new medication for him. He is on Toprol 25 mg daily that is not a new medication. Otherwise, again all medications listed. Aspirin is 81 mg daily. PAST MEDICAL HISTORY: Actually quite complex including history of atrioventricular block in the heart, status post pacemaker; B12 deficiency; hearing loss; BPH; colon polyps; coronary artery disease; carotid artery stenosis; cerebrovascular disease with strokes noted on his MRI, but no severe deficits; chemotherapy for prostate squamous cell cancer; chronic systolic heart failure; chronic kidney disease stage 3; gastroesophageal reflux disease; hyperglycemia; hyperlipidemia; inguinal hernia; ischemic cardiomyopathy, but really resolved as his ejection fraction is now up to 50%; mild cognitive impairment; his memory concerns back in early 2020, he got actually a 26 on his Mini-Mental; mild persistent asthma; obesity; recurrent pneumonia; recurrent urinary tract infections; subclavian artery stenosis; ulcerative colitis; thrombocytopenia. PAST SURGICAL HISTORY: The patient has had endoscopies, pacemaker, knee arthroplasty on the left, suprapubic catheter, inguinal hernia on the right, coronary artery bypass graft, bypass surgery, bronchoscopies, many colonoscopies. SOCIAL HISTORY: He is . He is retired. He lives at home with his . He has 1 son. He enjoyed working out at the known school house, doing some landscaping this summer. 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 He does not smoke. He does not currently drink any excessive alcohol. He would maybe have a beer on occasion otherwise. FAMILY HISTORY: Both parents are . REVIEW OF SYSTEMS: Constitutional: He is not really aware of any weight changes. HEENT: No sore throat. No trouble swallowing. Cardiac: He denies chest pain or palpitations. Respiratory: He denies any cough or shortness of breath. Gastrointestinal: No further diarrhea. Otherwise, all systems reviewed and found to be negative unless otherwise stated. Really, the only thing that is bothering him currently is that bed alarm. PHYSICAL EXAMINATION: Vital Signs: Today, it is a weight of 71.3 kg, temperature 98.4, pulse 63, blood pressure 127/51, respiratory rate 19, and O2 of 95% on room air. General: He is in no acute distress. Heart: Regular rate and rhythm with murmur. Lungs: Sounds are clear to auscultation bilaterally without crackles or wheezes. Abdomen: Nondistended. Positive bowel sounds. Nontender. Suprapubic in place. Extremities: Warm and dry. No edema. Mental Status: He is alert. He knows who I am. He is aware he is in [place]. He is answering all questions appropriately. He is not really overly irritable or agitated except when he starts talking about the bed alarm and it was going off all the time in [place] and he could not rest and who told you to use the bed alarm. ASSESSMENT: 1. Deconditioning and delirium after an acute stay for complicated urinary tract infection and pneumonia. He has completed antibiotics. We will continue supportive care. We will continue with the p.r.n. Seroquel. He does have p.r.n. Ativan available. I have stopped the bed alarm as I feel that he is not a danger to himself or others. His bed is by the nurse's station. We will just try to do frequent bed checks and make sure he is getting good rest. He does not show any intention of trying to leave the room. 2. Squamous cell prostate cancer. He is following with the oncologist. I had a antoni talk with him. He has had multiple hospital admissions for infections after chemotherapy. I do not feel the benefits of chemotherapy are outweighing the risks at this point. 3. Moderate protein calorie malnutrition. He has been started on Megace. I guess he will continue with that medication. His was pretty adamant about trying to bring medications from home. 4. Left lower lobe pneumonia, resolved. 5. Complicated urinary tract infection with suprapubic catheter. Sounds like it was recently changed while he was in [place]. He has completed antibiotics. We will flush if needed. 6. Acute on chronic kidney failure. We will repeat lab work on Sunday. 7. Pancytopenia, likely due to recent chemotherapy. We will continue to monitor blood counts. 8. Anemia due to blood loss and chronic disease. He has underlying ulcerative colitis. We will monitor blood counts. 9. Non ST-elevation myocardial infarction with underlying coronary artery disease. We will continue medical management. 10.Chronic systolic heart failure, not in exacerbation. Actually, now his ejection fraction is up to 50%. 11.Diarrhea, resolved. We will restart laxatives if needed. 12.Mild cognitive impairment. We will continue supportive cares. 13.Ulcerative colitis. He will continue his mesalamine for that. PLAN: The patient is admitted to swing bed [facility]. We will get PT and OT involved. We will likely do a cognitive assessment with OT also. We will give him a couple of days to adjust. We will follow up on lab work this Sunday. Anticipate though the patient may only need a close short stay here as I suspect physically he is doing much better, but cognitively he is going to need 24-hour supervision at home. We will try to touch base with his regarding this also. CHRISTIEA: 06/28/2021 18:03:28 MODL: 06/28/2021 21:10:07 /[id number]
[2021-06-29] MEDS ORDERED: UBIDECARENONE 75 MG PO SCH (08:00)
[2021-06-29] MEDS ORDERED: Miconazole 2% Vaginal Crm 45 GM Tube TOP PRN (08:31)
[2021-06-29] MEDS: Rosuvastatin 20 MG Tab PO SCH (09:04)
[2021-06-29] MEDS: Trospium 20 MG Tab PO SCH ×2 (09:04→21:00)
[2021-06-29] MEDS: Aspirin 81 MG Tab.EC PO SCH (09:04)
[2021-06-29] MEDS: Calcium Carbonate/Vitamin D3 1250 MG-5 MCG Tab PO SCH ×2 (09:04→21:00)
[2021-06-29] MEDS: Lactobacillus Rhamnosus GG (Probiotic) Cap PO SCH ×2 (09:05→21:00)
[2021-06-29] MEDS: QUEtiapine 25 MG Tab PO SCH ×2 (09:05→21:00)
[2021-06-29] MEDS: Metoprolol Succinate 25 MG Tab.ER PO SCH (09:06)
[2021-06-29] MEDS: Miconazole 2% Top Powder 45 GM Container TOP SCH ×2 (09:06→21:00)
[2021-06-29] MEDS ORDERED: Sodium Chloride 0.9% 10 ML Syringe FLUSH PRN (10:40)
[2021-06-29] MEDS: Megestrol Susp 40 MG/ML 10 ML UD Cup PO SCH (11:56)
[2021-06-29] MEDS: MESALAMINE 1.2 GM PO SCH (12:52)
[2021-06-29] MEDS: Finasteride 5 MG Tab PO SCH (17:19)
[2021-06-29] MEDS: Pramipexole 0.5 MG Tab PO SCH (21:00)
[2021-06-29] MEDS: Montelukast 10 MG Tab PO SCH (21:00)
[2021-06-30] MEDS: Megestrol Susp 40 MG/ML 10 ML UD Cup PO SCH (10:40)
[2021-06-30] MEDS: Lactobacillus Rhamnosus GG (Probiotic) Cap PO SCH ×2 (10:41→20:46)
[2021-06-30] MEDS: QUEtiapine 25 MG Tab PO SCH ×2 (10:41→20:47)
[2021-06-30] MEDS: MESALAMINE 1.2 GM PO SCH (10:41)
[2021-06-30] MEDS: Aspirin 81 MG Tab.EC PO SCH (10:41)
[2021-06-30] MEDS: Calcium Carbonate/Vitamin D3 1250 MG-5 MCG Tab PO SCH ×2 (10:41→20:46)
[2021-06-30] MEDS: Rosuvastatin 20 MG Tab PO SCH (10:41)
[2021-06-30] MEDS: Trospium 20 MG Tab PO SCH ×2 (10:42→20:46)
[2021-06-30] MEDS: Metoprolol Succinate 25 MG Tab.ER PO SCH (10:49)
[2021-06-30] MEDS: Miconazole 2% Top Powder 45 GM Container TOP SCH ×2 (10:53→20:50)
[2021-06-30] MEDS: Finasteride 5 MG Tab PO SCH (17:54)
[2021-06-30] MEDS: Sodium Chloride 0.9% 10 ML Syringe FLUSH SCH (18:03)
[2021-06-30] MEDS: Montelukast 10 MG Tab PO SCH (20:46)
[2021-06-30] MEDS: Pramipexole 0.5 MG Tab PO SCH (20:47)
[2021-07-01 07:24] LABS: ANION GAP 12.4 mmol/L (5-15)
[2021-07-01] MEDS: Megestrol Susp 40 MG/ML 10 ML UD Cup PO SCH (09:14)
[2021-07-01] MEDS: Lactobacillus Rhamnosus GG (Probiotic) Cap PO SCH ×2 (09:14→20:42)
[2021-07-01] MEDS: Rosuvastatin 20 MG Tab PO SCH (09:15)
[2021-07-01] MEDS: Metoprolol Succinate 25 MG Tab.ER PO SCH (09:15)
[2021-07-01] MEDS: Trospium 20 MG Tab PO SCH ×2 (09:15→20:44)
[2021-07-01] MEDS: Calcium Carbonate/Vitamin D3 1250 MG-5 MCG Tab PO SCH ×2 (09:15→20:42)
[2021-07-01] MEDS: Aspirin 81 MG Tab.EC PO SCH (09:16)
[2021-07-01] MEDS: QUEtiapine 25 MG Tab PO SCH ×2 (09:16→20:43)
[2021-07-01] MEDS: Sodium Chloride 0.9% 10 ML Syringe FLUSH SCH (09:17)
[2021-07-01] MEDS: MESALAMINE 1.2 GM PO SCH (09:18)
[2021-07-01] MEDS: Miconazole 2% Top Powder 45 GM Container TOP SCH ×2 (09:18→23:36)
[2021-07-01] MEDS: Finasteride 5 MG Tab PO SCH (17:58)
--- NOTE | 2021-07-01 18:31 | PN ---
Progress Note for DAYLIN JAIMES Date: 07/01/2021 Room #: VM.217 SUBJECTIVE: Dictation #1 on an 81-year-old on swing bed, admitted on 06/28/2021 after an acute stay in [place] for left lower lobe pneumonia and a complicated UTI with sepsis that started after his chemotherapy treatments for which he is supposed to complete 12 weeks. He has missed at least 4 treatments. The treatments started late March and were supposed to be over around 07/13/2021 for the squamous cell cancer of his prostate. He was seen by OT yesterday and scored 15/30 on his SLUMS indicating a cognitive deficit. He had had some memory loss in the past, and it was felt that delirium complicated his recent stay. He also has a history of anxiety. The patient himself is frustrated. He realizes that sometimes his memory is not good. Like today, he did not remember we were already at 12/10, but he is aware he is in the hospital. When his came up, he remembers that he was not very nice to her, that he did not talk to her. His last Mini-Mental though was 26 earlier this year, like back in November. The patient was started on anxiety medications with Seroquel in [place], which he is tolerating. He has not had any major issues with behavior here. He is just more anxious to go home, but he tells me today, he knows he is not ready to go home today. OBJECTIVE: Vital Signs: His temperature is 98.3, pulse 86, blood pressure 118/58, respiratory rate 20, and O2 of 94% on room air. Weight 71.9 kg. General: He is in no acute distress. Heart: Regular rate and rhythm. Lungs: Lung sounds are clear to auscultation bilaterally without crackles or wheezes. Extremities: Warm and dry. No edema. Mental Status: He is alert and orientated x2. LABORATORY DATA: Lab work today, white count normal 6.3, hemoglobin 9.8, and platelets 265. Sodium 139, potassium 4.4, chloride 105, BUN 23, bicarbonate 26, creatinine 1.5, and calcium 9.8. ALT, AST, and bilirubin all normal. Albumin 2.9. ASSESSMENT: 1. Delirium after an acute stay for sepsis with pneumonia and urinary tract infection and likely some at least underlying mild cognitive impairment. The patient is clinically improving. He has a fluctuating course. Some movements are better than others. Physically, he will be stable to return home with his on Sunday and she also accepts that things may potentially hopefully improve when he is in the home setting. 2. Deconditioning. He will continue working with therapies. PT has discontinued physical therapy, but he will get a cognitive evaluation next week by OT. 3. Squamous cell prostate cancer. He is making good judgment decisions. He is talking about not getting further treatment since it causes him to get too sick. 4. Moderate protein-calorie malnutrition. He is on Megace. He is eating 100% of his meals so far today, 30% to 50% yesterday. We will encourage p.o. intake. 5. Left lower lobe pneumonia and complicated urinary tract infection with a suprapubic cath. He has completed antibiotics. 6. Chronic kidney disease. Creatinine is at 1.5. 7. Pancytopenia due to recent chemotherapy, resolving. 8. Chronic anemia. Hemoglobin stable. There is no ongoing bleeding. 9. Non ST-elevation myocardial infarction with known underlying coronary disease. He is on medical management. He is not having any symptoms. 10.Chronic systolic and diastolic heart failure. Ejection fraction has actually improved up to 50%. He is not requiring diuretics. 11.Diarrhea, resolved. He has underlying ulcerative colitis. PLAN: The patient will continue on swing bed cares with an OT reassessment on Sunday and then likely home with his and home health for social welfare administrator, OT in the home, nursing for help with catheter cares, and social work associate. MKA: 07/01/2021 16:58:29 MODL: 07/01/2021 18:24:59 /[id number]
[2021-07-01] MEDS: Montelukast 10 MG Tab PO SCH (20:42)
[2021-07-01] MEDS: Pramipexole 0.5 MG Tab PO SCH (20:45)
[2021-07-02] MEDS: Megestrol Susp 40 MG/ML 10 ML UD Cup PO SCH (08:03)
[2021-07-02] MEDS: Sodium Chloride 0.9% 10 ML Syringe FLUSH SCH (08:04)
[2021-07-02] MEDS: Trospium 20 MG Tab PO SCH ×2 (08:05→20:09)
[2021-07-02] MEDS: Calcium Carbonate/Vitamin D3 1250 MG-5 MCG Tab PO SCH ×2 (08:05→20:10)
[2021-07-02] MEDS: Lactobacillus Rhamnosus GG (Probiotic) Cap PO SCH ×2 (08:05→20:10)
[2021-07-02] MEDS: Rosuvastatin 20 MG Tab PO SCH (08:05)
[2021-07-02] MEDS: MESALAMINE 1.2 GM PO SCH (08:05)
[2021-07-02] MEDS: Aspirin 81 MG Tab.EC PO SCH (08:05)
[2021-07-02] MEDS: QUEtiapine 25 MG Tab PO SCH ×2 (08:05→20:10)
[2021-07-02] MEDS: Metoprolol Succinate 25 MG Tab.ER PO SCH (08:09)
[2021-07-02] MEDS: Miconazole 2% Top Powder 45 GM Container TOP SCH ×2 (08:22→20:45)
[2021-07-02] MEDS: Finasteride 5 MG Tab PO SCH (17:37)
[2021-07-02] MEDS: Montelukast 10 MG Tab PO SCH (20:09)
[2021-07-02] MEDS: Pramipexole 0.5 MG Tab PO SCH (20:10)
[2021-07-03] MEDS: Calcium Carbonate/Vitamin D3 1250 MG-5 MCG Tab PO SCH ×2 (08:33→20:57)
[2021-07-03] MEDS: Aspirin 81 MG Tab.EC PO SCH (08:33)
[2021-07-03] MEDS: Lactobacillus Rhamnosus GG (Probiotic) Cap PO SCH ×2 (08:33→20:56)
[2021-07-03] MEDS: Metoprolol Succinate 25 MG Tab.ER PO SCH (08:33)
[2021-07-03] MEDS: QUEtiapine 25 MG Tab PO SCH ×2 (08:34→20:57)
[2021-07-03] MEDS: Rosuvastatin 20 MG Tab PO SCH (08:34)
[2021-07-03] MEDS: Trospium 20 MG Tab PO SCH ×2 (08:34→20:57)
[2021-07-03] MEDS: MESALAMINE 1.2 GM PO SCH (08:34)
[2021-07-03] MEDS: Megestrol Susp 40 MG/ML 10 ML UD Cup PO SCH (08:34)
[2021-07-03] MEDS: Sodium Chloride 0.9% 10 ML Syringe FLUSH SCH (08:35)
[2021-07-03] MEDS: Miconazole 2% Top Powder 45 GM Container TOP SCH ×2 (08:36→21:02)
[2021-07-03] MEDS: Finasteride 5 MG Tab PO SCH (18:07)
[2021-07-03] MEDS: Pramipexole 0.5 MG Tab PO SCH (20:56)
[2021-07-03] MEDS: Montelukast 10 MG Tab PO SCH (20:56)
[2021-07-04 06:10] VITALS: BP 151/67; PULSE 84
[2021-07-04] MEDS: MESALAMINE 1.2 GM PO SCH (09:34)
[2021-07-04] MEDS: Aspirin 81 MG Tab.EC PO SCH (09:34)
[2021-07-04] MEDS: QUEtiapine 25 MG Tab PO SCH (09:34)
[2021-07-04] MEDS: Calcium Carbonate/Vitamin D3 1250 MG-5 MCG Tab PO SCH (09:35)
[2021-07-04] MEDS: Megestrol Susp 40 MG/ML 10 ML UD Cup PO SCH (09:35)
[2021-07-04] MEDS: Rosuvastatin 20 MG Tab PO SCH (09:36)
[2021-07-04] MEDS: Lactobacillus Rhamnosus GG (Probiotic) Cap PO SCH (09:36)
[2021-07-04] MEDS: Sodium Chloride 0.9% 10 ML Syringe FLUSH SCH (09:36)
[2021-07-04] MEDS: Metoprolol Succinate 25 MG Tab.ER PO SCH (09:36)
[2021-07-04] MEDS: Trospium 20 MG Tab PO SCH (09:36)
[2021-07-04] MEDS: Miconazole 2% Top Powder 45 GM Container TOP SCH (09:37)
--- NOTE | 2021-07-04 21:20 | DISCH ---
Dictation #1 on an 81-year-old seen today for hospital discharge. PRIMARY DISCHARGE DIAGNOSES: 1. Delirium after an acute stay for sepsis related to chemotherapy. 2. Deconditioning. He has done well with therapy. 3. Squamous cell prostate cancer, currently on chemo treatments. 4. Moderate protein calorie malnutrition, started on Megace with some improved intake during his stay. 5. Left lower lobe pneumonia and complicated urinary tract infection, treated with antibiotics before he arrived on swing bed. 6. Chronic kidney disease with creatinine at 1.5 on discharge, which had been stable from his hospital stay. 7. Pancytopenia due to chemotherapy, resolving. 8. Chronic anemia. His hemoglobin was stable at 9.8 on discharge. 9. [id number] myocardial infarction with known coronary disease on his acute stay. He is on medical management. He had no chest pain symptoms during his stay. 10.Chronic diastolic heart failure. His ejection fraction improved up to 50%. He did not require any Lasix during his stay. 11.Anxiety. He actually did not require any lorazepam during his stay as he had been started on Seroquel in [place]. 12.Underlying ulcerative colitis. He had no further diarrhea during his stay. REASON FOR ADMISSION: On the date of admission, this 81-year-old male was transferred from [place] after an acute stay for further rehabilitation and therapies. He worked with the occupational therapist and did get a 15 only on his MoCA, but his mental status seemed to improve throughout the stay. He was also up and working with therapies. He was a little irritable at times, especially when he had the bed alarm on, but he was redirected and did well. He never tried to leave the floor, so we discontinued the bed alarm. He had no falls. He was up getting around. We monitored his lab work. He had stable labs. He needed no further antibiotics. We just encouraged a diet, which he did have 100% of breakfast this morning. He had good urine output through his catheter. DISCHARGE PLANS AND INSTRUCTIONS: He has a suprapubic catheter. He was due for change in the clinic, so we will get that rescheduled. He will have home health for the social work assistant and OT evaluation at home to repeat the cognitive testing and nursing for his catheter if they are able to change it at home; otherwise, it will be done in the clinic. Date of home health admission is planned for 07/07 or 07/08. He will follow up in the clinic with Dr. Bradford on 07/20. He may use Lotrimin cream for his penile rash after he washes and soaks it gently. He will have Megace, [facility] and [facility] will wait to start that when it comes. He will follow up with Dr. Plascencia next week as planned. He will see me for followup, but no lab work due for me. He will have home health. He will have Seroquel, which was twice daily, I will give him just at bedtime 12.5 and 12.5 p.r.n. during the day. His Lasix will remain only as needed and he has Desenex powder to use on his penis if needed for red rashes and he will use the barrier cream if needed on any other areas of skin breakdown or sores. Heir-[id number] encounter for home health occurred with myself on 07/04/2021. Primary reasons for home health are for teaching and assessments of the catheter to avoid UTI and sepsis and also for medication management given his delirium and cognitive decline and he will also have OT to work with him on his ADLs. Due to his cognitive decline from delirium, he is unsafe to leave his home without the assistance of another person and I will periodically review this plan of care. PHYSICAL EXAMINATION: Vital Signs: Discharging vitals are a weight of 74.2 kg, temperature 98.6, pulse 84, blood pressure 151/67, respiratory rate 14, and O2 of 99% on room air. General: He is in no acute distress. Heart: Regular rate and rhythm. Lungs: Sounds are clear to auscultation bilaterally without crackles or wheezes. Abdomen: Positive bowel sounds. Soft, nondistended, nontender. Extremities: Warm and dry. No edema. Mental Status: He is alert. He is orientated x3 this morning. MKA: 07/04/2021 16:59:57 MODL: 07/04/2021 21:12:25 /[id number]
== END 2021-07-04 12:58 | disposition home health service (06) | DRG 947 ==
LOC: VM.MS 15:00
PROVIDERS: ADMIT Internal Medicine; ATTEND Internal Medicine
DX: R53.81 Other malaise (principal); D61.810 Antineoplastic chemotherapy induced pancytopenia; I21.4 Non-ST elevation (NSTEMI) myocardial infarction; E44.0 Moderate protein-calorie malnutrition; I13.0 Hypertensive heart and chronic kidney disease with heart failure and stage 1 through stage 4 chronic kidney disease, or unspecified chronic kidney disease; I50.32 Chronic diastolic (congestive) heart failure; K51.90 Ulcerative colitis, unspecified, without complications; N17.9 Acute kidney failure, unspecified; R41.0 Disorientation, unspecified; C61 Malignant neoplasm of prostate; T45.1X5A Adverse effect of antineoplastic and immunosuppressive drugs, initial encounter; D50.0 Iron deficiency anemia secondary to blood loss (chronic); G31.84 Mild cognitive impairment of uncertain or unknown etiology; N18.9 Chronic kidney disease, unspecified; F41.9 Anxiety disorder, unspecified; Z68.24 Body mass index [BMI] 24.0-24.9, adult; Z96.652 Presence of left artificial knee joint; D63.1 Anemia in chronic kidney disease; I25.10 Atherosclerotic heart disease of native coronary artery without angina pectoris; N40.0 Benign prostatic hyperplasia without lower urinary tract symptoms; N18.30 Chronic kidney disease, stage 3 unspecified; K21.9 Gastro-esophageal reflux disease without esophagitis; E78.5 Hyperlipidemia, unspecified; Y92.89 Other specified places as the place of occurrence of the external cause; Z87.01 Personal history of pneumonia (recurrent); Z98.890 Other specified postprocedural states; Z95.0 Presence of cardiac pacemaker; Z86.73 Personal history of transient ischemic attack (TIA), and cerebral infarction without residual deficits; Z95.1 Presence of aortocoronary bypass graft
CPT/HCPCS: 36415; 80053; 85025; 87070; 96125-GO; 97110-GP; 97112-GP; 97161-GP; 97166-GO; A9270-GY; J1642

== ENCOUNTER 2021-07-08 01:25 | Emergency (ER) | payer MEDICARE, BC ==
--- NOTE | 2021-07-08 01:46 | EDM.PDOC ---
ED HPI GENERAL MEDICAL PROBLEM - General Chief Complaint: Genitourinary Problem Stated Complaint: bladder retention Time Seen by Provider: 07/08/21 01:25 Source of Information: Reports: Patient, Family History Limitations: Reports: No Limitations - History of Present Illness INITIAL COMMENTS - FREE TEXT/NARRATIVE: Govind is an 81 year old male who presents to ER with suprapubic pressure. History of suprapubic catheter placement. Has not been draining well tonight. Last noted good urine flow from his catheter about 6 or more hours ago. Switched over to his leg bag for the night around 2300 and has not noted much urine in the bag at all. Was recently hospitalized for pneumonia and a UTI, transferred back here to swing bed and was discharged home on Sunday with home health. Had this most recent catheter replaced about 2 weeks ago. Meera tried to drink a lot more water to see if would help it irrigate and flow better but believes he caused more of an issue. Admits has not been drinking well as of late. Was treated with a full course of antibiotics so did not need to be continued on these when he was discharged home. Per his note, was having more issues with delirium and was started on new meds for that. Has been doing okay since discharge until tonight. No fevers. No nausea or vomiting. states keeps screaming out with pain. Onset: Today, Gradual Duration: Hour(s):, Getting Worse Location: Reports: Abdomen Quality: Reports: Sharp Severity: Severe Improves with: Reports: None Associated Symptoms: Denies: Confusion, Chest Pain, Cough, Fever/Chills, Loss of Appetite, Nausea/Vomiting, Shortness of Breath Bladder Pain Score (Numeric/FACES): 10 - Related Data Allergies Allergy/AdvReac Type Severity Reaction Status Date / Time atorvastatin AdvReac Unknown intolerance Verified 07/08/21 01:58 niacin AdvReac Body Aches Verified 07/08/21 01:58 simvastatin [From Zocor] AdvReac Muscle Verified 07/08/21 01:58 Aches Yavkhmc-YHI-WoX Reductase AdvReac Other Verified 07/08/21 01:58 Inhibitor [Xkklpfe-Klz-Cxu Reductase Inhibitor] isopropal nicotinate AdvReac Body Aches Uncoded 07/08/21 01:58 Home Meds: Home Meds Mesalamine [Lialda] 2.4 gram PO DAILY 10/11/14 [History] Montelukast Sodium [Singulair] 10 mg PO BEDTIME 10/11/14 [History] Nitroglycerin [Nitrostat] 0.4 mg SL ASDIRECTED PRN 10/11/14 [History] Pramipexole Di-HCl [Mirapex] 0.5 mg PO BEDTIME 10/11/14 [History] Rosuvastatin [Crestor] 20 mg PO DAILY 10/11/14 [History] Ubidecarenone [Co Q-10] 75 mg PO DAILY 08/04/17 [History] Finasteride [Proscar] 5 mg PO DAILY@1800 06/14/20 [History] Lidocaine/Prilocaine [EMLA Crm] 1 applic TOP ASDIRECTED PRN 06/14/20 [History] Ondansetron [Zofran] 8 mg PO TID PRN 06/14/20 [History] Sennosides/Docusate Sodium [Senna Plus 8.6-50 mg Softgel] 2 tab PO BEDTIME PRN 06/14/20 [History] polyethylene glycoL 3350 [MiraLAX] 17 gm PO DAILY PRN 06/14/20 [History] Acetaminophen 1,000 mg PO Q6H PRN 10/14/20 [History] Aspirin [Aspirin EC] 81 mg PO DAILY 10/14/20 [History] Calcium Carbonate/Vitamin D3 [Calcium 600-Vit D3 200 Tablet] 1 tab PO BID 10/14/20 [History] L. Acidophilus/L.bulgaricus [Lactobacillus Tablet] 1 tab PO BID 10/14/20 [History] LORazepam [Ativan] 1 mg PO TID PRN 10/14/20 [History] Metoprolol Succinate [Toprol XL] 25 mg PO DAILY 12/28/20 [History] Furosemide [Lasix] 20 mg PO DAILY PRN 06/28/21 [History] Omeprazole 20 mg PO DAILY PRN 06/28/21 [History] Simethicone 80 mg PO QID PRN 06/28/21 [History] Trospium [Sanctura] 20 mg PO BID 06/28/21 [History] Heparin Sodium [Heparin Lock Flush] 500 units IVPUSH ASDIRECTED PRN syringe 07/04/21 [Rx] Heparin Sodium [Heparin Lock Flush] 500 units IVPUSH DAILY syringe 07/04/21 [Rx] Megestrol [Megace 40 MG/ML Susp] 400 mg PO DAILY #90 07/04/21 [Rx] Miconazole [Desenex 2%] 0 gm TOP BID cont 07/04/21 [Rx] QUEtiapine [SEROquel] 12.5 mg PO BEDTIME #90 07/04/21 [Rx] QUEtiapine [SEROquel] 12.5 mg PO DAILY PRN #30 tablet 07/04/21 [Rx] Past Medical History HEENT History: Reports: Otitis Media, Sinusitis, Other (See Below) Other HEENT History: awaiting ear doctor appt.--tube came out and is effecting hearing, pt. has to keep an ear plug in or he hears his heartbeat while trying to sleep and it keeps him from sleeping. Cardiovascular History: Reports: Bypass, CAD, High Cholesterol, Pacemaker, Other (See Below) Other Cardiovascular History: cerebralvascular small vessel disease. AV block. carotid artery stenosis Respiratory History: Reports: Asthma, Sleep Apnea Gastrointestinal History: Reports: GERD, Other (See Below) Other Gastrointestinal History: benign neoplasm of colon. ulcerative colitis Genitourinary History: Reports: Prostate Disorder, Renal Calculus Musculoskeletal History: Reports: Other (See Below) Other Musculoskeletal History: bilateral sacroiliac joints. closed pelvic frac ture. R. 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 Denies: Fever, Chills, Decreased Appetite HEENT: Denies: Ear Pain, Rhinitis, Sinus Problem, Throat Pain, Vertigo Respiratory: Denies: Shortness of Breath, Cough Cardiovascular: Denies: Chest Pain, Lightheadedness Endocrine: Reports: Fatigue GI/Abdominal: Reports: Abdominal Pain. Denies: Constipation, Diarrhea, Nausea, Vomiting : Reports: Urinary Retention Musculoskeletal: Reports: No Symptoms Skin: Reports: No Symptoms ED EXAM, RENAL/ - Physical Exam Exam: See Below Exam Limited By: No Limitations General Appearance: Alert, WD/WN, Moderate Distress Ears: Normal External Exam, Normal TMs Nose: Normal Inspection, Normal Mucosa, No Blood Throat/Mouth: Normal Inspection, Normal Oropharynx Head: Normocephalic Neck: Normal Inspection, Supple, Non-Tender Respiratory/Chest: No Respiratory Distress, Crackles (RLL) Cardiovascular: Regular Rate, Rhythm GI/Abdominal: Normal Bowel Sounds, Tender (abdomen distended, firm, tender with exam) (Male) Exam: Suprapubic Fullness Extremities: Normal Inspection, No Pedal Edema Neurological: Alert, Oriented Skin Exam: Warm, Dry Course - Vital Signs Last Recorded V/S: Last Vital Signs Temp 98.8 F 07/08/21 01:25 Pulse 79 07/08/21 01:25 Resp 18 07/08/21 01:25 BP 111/54 L 07/08/21 01:25 Pulse Ox 95 07/08/21 01:25 - Orders/Labs/Meds Orders: Active Orders 24 hr Category Date Time Status CULTURE URINE [RM] Stat Lab 07/08/21 01:40 Received cefTRIAXone 1 GM,Lidocaine 1% 1.2 ML Med 07/08/21 02:15 Ordered cefTRIAXone [Rocephin] 1 gm Lidocaine 1% [Xylocaine-MPF 1%] 1.2 ml IM Q24H Medication Orders Ceftriaxone Sodium 1 gm/ (Lidocaine HCl 1.2 ml) 0 gm IM Q24H KEKE Labs: Laboratory Tests 07/08/21 Range/Units 01:40 Urine Color Yellow (YELLOW) Urine Appearance Cloudy H (CLEAR) Urine pH 6.0 (5.0-8.0) Ur Specific [place] 1.025 Urine Protein 100 H (NEGATIVE) mg/dL Urine Glucose (UA) Negative (NEGATIVE) mg/dL Urine Ketones Negative (NEGATIVE) mg/dL Urine Occult Blood Moderate H (NEGATIVE) Urine Nitrite Negative (NEGATIVE) Urine Bilirubin Negative (NEGATIVE) Urine Urobilinogen 0.2 (0.2) EU/dL Ur Leukocyte Esterase Moderate H (NEGATIVE) Urine RBC 10-20 H (NOT SEEN) /HPF Urine WBC Semi-packed H (NOT SEEN) /HPF Ur Squamous Epith Cells Not seen (NOT SEEN) /HPF Urine Bacteria Occasional H (NOT SEEN) /HPF Urine Mucus Rare H (NOT SEEN) /LPF Ur Yeast w Hyphae Occasional (NONE - FEW) /HPF Meds: Medications Generic Name Dose Route Start Last Admin Trade Name Beth PRN Reason Stop Dose Admin Ceftriaxone Sodium 1 gm/ 0 gm 07/08/21 02:15 Lidocaine HCl 1.2 ml IM Q24H KEKE - Re-Assessments/Exams Free Text/Narrative Re-Assessment/Exam: 07/08/21 -0130 Did irrigate suprapubic catheter with 50 ml and then changed leg bag and now is draining well. Urine is cloudy with sediment. UA sent in. 0150-Patient feeling much better. Catheter still draining small amount. Did get up to [facility] and had BM as well. Abdomen now soft, nontender. 07/08/21 02:10 Urine positive, also noted yeast presence. Discussed with . Patient still feeling good. Will given Rocephin now and start on Cipro and Diflucan. Departure - Departure Time of Disposition: 02:11 Disposition: Home, Self-Care 01 Condition: Good Clinical Impression: UTI, Urinary tract infectious disease - Discharge Information *PRESCRIPTION DRUG MONITORING PROGRAM REVIEWED*: No *COPY OF PRESCRIPTION DRUG MONITORING REPORT IN PATIENT SERVANDO: No Instructions: Urinary Tract Infection, Adult, [id number] Forms: ED Department Discharge Additional Instructions: 1. Push fluids 2. Tylenol for discomfort 3. Cipro 500 mg twice a day for 10 days 4. Diflucan 100 mg daily for 7 days 5. Follow up with Dr. Bradford if persisting concerns. Sepsis Event Note (ED) - Focused Exam Vital Signs: Vital Signs Temp Pulse Resp BP Pulse Ox 07/08/21 01:25 98.8 F 79 18 111/54 L 95 - My Orders Last 24 Hours: My Active Orders 07/08/21 01:40 CULTURE URINE [RM] Stat 07/08/21 02:15 cefTRIAXone 1 GM,Lidocaine 1% 1.2 ML cefTRIAXone [Rocephin] 1 gm Lidocaine 1% [Xylocaine-MPF 1%] 1.2 ml IM Q24H - Assessment/Plan Last 24 Hours: My Active Orders 07/08/21 01:40 CULTURE URINE [RM] Stat 07/08/21 02:15 cefTRIAXone 1 GM,Lidocaine 1% 1.2 ML cefTRIAXone [Rocephin] 1 gm Lidocaine 1% [Xylocaine-MPF 1%] 1.2 ml IM Q24H
[2021-07-08 01:54] VITALS: BP 111/54; PULSE 79
[2021-07-08] MEDS ORDERED: cefTRIAXone 1 GM, Lidocaine 1% 1.2 ML IM SCH ×2 (02:15)
== END 2021-07-08 02:48 | disposition home or self-care (01) ==
LOC: VM.ED 01:25
DX: N39.0 Urinary tract infection, site not specified (principal); I25.10 Atherosclerotic heart disease of native coronary artery without angina pectoris; E78.00 Pure hypercholesterolemia, unspecified; E66.9 Obesity, unspecified; K21.9 Gastro-esophageal reflux disease without esophagitis; Z95.0 Presence of cardiac pacemaker; Z88.8 Allergy status to other drugs, medicaments and biological substances; Z88.1 Allergy status to other antibiotic agents; Z79.899 Other long term (current) drug therapy; Z79.82 Long term (current) use of aspirin; Z68.30 Body mass index [BMI] 30.0-30.9, adult
CPT/HCPCS: 81001; 87086; 87088; 96372; 99284; J0696

== ENCOUNTER 2021-12-01 19:28 | Emergency (ER) | payer OTHER, MEDICARE, BC ==
[2021-12-01 21:22] VITALS: BP 111/47; PULSE 60
== END 2021-12-01 21:05 | disposition swing bed (61) ==
LOC: VM.ED 19:28
DX: C61 Malignant neoplasm of prostate (principal); E66.9 Obesity, unspecified; Z68.27 Body mass index [BMI] 27.0-27.9, adult; Z88.8 Allergy status to other drugs, medicaments and biological substances; Z88.3 Allergy status to other anti-infective agents; Z91.048 Other nonmedicinal substance allergy status; Z79.899 Other long term (current) drug therapy
CPT/HCPCS: 99283

== ENCOUNTER 2021-12-01 20:19 | Inpatient (IN) | payer OTHER, MEDICARE, BC ==
[2021-12-01] MEDS ORDERED: Morphine Oral Concentrate 20 MG/ML 30 ML Bottle PO PRN ×2 (21:44→22:27)
[2021-12-01] MEDS ORDERED: Nitroglycerin 0.4 MG Tab.SL SL PRN (21:44)
[2021-12-01] MEDS ORDERED: Furosemide 20 MG Tab PO PRN (21:44)
[2021-12-01] MEDS ORDERED: QUEtiapine 25 MG Tab PO PRN (21:44)
[2021-12-01] MEDS ORDERED: LORazepam 1 MG Tab PO PRN (21:44)
[2021-12-01] MEDS ORDERED: Acetaminophen 500 MG Tab PO PRN (21:44)
[2021-12-01] MEDS ORDERED: Polyethylene Glycol 3350 Powder 17 GM Packet PO PRN (21:44)
[2021-12-01] MEDS ORDERED: Haloperidol Lactate 2 MG/ML Oral Soln 15 ML Bottle PO PRN (21:49)
[2021-12-01] MEDS ORDERED: Morphine 15 MG Tab PO SCH (22:00)
[2021-12-01] MEDS ORDERED: QUEtiapine 25 MG Tab PO SCH (22:00)
[2021-12-01 23:04] VITALS: PULSE 61
[2021-12-02] MEDS: LORazepam 1 MG Tab PO SCH ×4 (03:07→17:35)
[2021-12-02] MEDS: Trospium 20 MG Tab PO SCH ×2 (03:08→17:34)
[2021-12-02] MEDS: QUEtiapine 25 MG Tab PO SCH ×2 (03:08→17:34)
[2021-12-02] MEDS: Morphine 15 MG Tab.ER PO SCH ×2 (03:08→17:34)
[2021-12-02 05:16] VITALS: BP 129/63
[2021-12-02] MEDS ORDERED: MORPHINE 15 MG PO SCH (12:00)
[2021-12-02] MEDS ORDERED: MORPHINE 30 MG PO SCH (12:00)
[2021-12-02] MEDS ORDERED: Morphine 30 MG Tab.ER PO SCH (12:00)
[2021-12-02] MEDS: Morphine Oral Concentrate 20 MG/ML (OWN SUPPLY) PO PRN ×4 (12:52→17:56)
[2021-12-02] MEDS: LORazepam 1 MG Tab (OWN SUPPLY) PO PRN ×2 (13:04→15:52)
[2021-12-02] MEDS: HALOPERIDOL LACTATE 2 MG/ML PO PRN (15:38)
[2021-12-02] MEDS: LORazepam 1 MG Tab (OWN SUPPLY) PO SCH ×3 (15:50→22:45)
[2021-12-02] MEDS: TROSPIUM 20 MG PO SCH (22:40)
[2021-12-02] MEDS: MORPHINE 15 MG PO SCH (22:42)
[2021-12-03] MEDS: LORazepam 1 MG Tab (OWN SUPPLY) PO SCH ×6 (02:17→22:20)
[2021-12-03] MEDS: Morphine Oral Concentrate 20 MG/ML (OWN SUPPLY) PO PRN ×3 (02:19→18:07)
[2021-12-03] MEDS: HALOPERIDOL LACTATE 2 MG/ML PO PRN ×2 (03:31→19:32)
[2021-12-03] MEDS: MORPHINE 15 MG PO SCH ×2 (09:33→22:22)
[2021-12-03] MEDS: TROSPIUM 20 MG PO SCH ×2 (09:37→22:24)
[2021-12-03] MEDS: MORPHINE 30 MG PO SCH (12:00)
[2021-12-03] MEDS: LORazepam 1 MG Tab (OWN SUPPLY) PO PRN (19:30)
[2021-12-04] MEDS: LORazepam 1 MG Tab (OWN SUPPLY) PO SCH ×7 (02:25→22:57)
[2021-12-04] MEDS: MORPHINE 15 MG PO SCH ×3 (09:43→23:00)
[2021-12-04] MEDS: TROSPIUM 20 MG PO SCH ×3 (09:44→22:58)
[2021-12-04] MEDS: HALOPERIDOL LACTATE 2 MG/ML PO PRN (09:47)
[2021-12-04] MEDS: MORPHINE 30 MG PO SCH (14:24)
[2021-12-04] MEDS ORDERED: Haloperidol Lactate 5 MG/ML SDV IM PRN (14:47)
[2021-12-04] MEDS: Morphine Oral Concentrate 20 MG/ML (OWN SUPPLY) PO PRN (16:49)
[2021-12-05] MEDS: LORazepam 1 MG Tab (OWN SUPPLY) PO SCH ×3 (03:00→10:22)
[2021-12-05] MEDS: Morphine Oral Concentrate 20 MG/ML (OWN SUPPLY) PO PRN ×2 (09:19→10:23)
[2021-12-05] MEDS: LORazepam 1 MG Tab (OWN SUPPLY) PO PRN (09:23)
[2021-12-05] MEDS: MORPHINE 15 MG PO SCH (09:25)
[2021-12-05] MEDS: TROSPIUM 20 MG PO SCH (09:26)
== END 2021-12-05 10:53 | DRG 951 ==
LOC: VM.MS 20:19 → UNDOADMIN 20:19
PROVIDERS: ADMIT Internal Medicine; ATTEND Internal Medicine
DX: Z51.5 Encounter for palliative care (principal); F05 Delirium due to known physiological condition; K51.90 Ulcerative colitis, unspecified, without complications; N39.0 Urinary tract infection, site not specified; C61 Malignant neoplasm of prostate; R45.1 Restlessness and agitation; T38.0X5A Adverse effect of glucocorticoids and synthetic analogues, initial encounter; Z75.5 Holiday relief care; Z20.822 Contact with and (suspected) exposure to COVID-19; R33.9 Retention of urine, unspecified; N35.919 Unspecified urethral stricture, male, unspecified site; I25.10 Atherosclerotic heart disease of native coronary artery without angina pectoris; F03.90 Unspecified dementia, unspecified severity, without behavioral disturbance, psychotic disturbance, mood disturbance, and anxiety; I25.119 Atherosclerotic heart disease of native coronary artery with unspecified angina pectoris; N18.30 Chronic kidney disease, stage 3 unspecified; K21.9 Gastro-esophageal reflux disease without esophagitis; J45.30 Mild persistent asthma, uncomplicated; G47.30 Sleep apnea, unspecified; Y92.89 Other specified places as the place of occurrence of the external cause; Z95.0 Presence of cardiac pacemaker
CPT/HCPCS: A9270-GY; U0002